=== PATIENT | male | born 1965 | race Caucasian/White ===

== ENCOUNTER 2018-03-06 15:05 | Emergency (ER) | payer MEDICARE, OTHER ==
[~2018-03-06] VITALS: Ht 182.9 cm; Wt 86.6 kg
[2018-03-06 16:11] LABS: Basophils # (auto) 0 uL; Eosinophils # (auto) 0 uL; Hematocrit 42.5 % (41.0-53.0); Mean Corpuscular Hemoglobin 25.2 pg (28.0-32.0); Monocytes # (auto) 0.3 uL
[2018-03-06 16:13] LABS: Basophils % (auto) 0.5 % (0.0-2.0); Eosinophils % (auto) 0.3 % (0.0-7.0); Hemoglobin 13.8 g/dL (13.5-17.5); Lymphocytes # (auto) 0.9 uL; Lymphocytes % (auto) 11.1 % (10.0-50.0); Mean Corpuscular Hgb Conc. 32.4 g/dL (32.0-36.0); Mean Corpuscular Volume 77.6 fL (80.0-100.0); Neutrophils # (auto) 6.6 uL; Neutrophils % (auto) 84.1 % (37.0-80.0); Nucleated Red Blood Cells % 0.1 %; Platelet Count (auto) 121 10^3/uL (140-450); Red Blood Cells 5.47 10^6/uL (4.5-5.90); White Blood Cell 7.8 10^3/uL (4.4-10.8)
[2018-03-06 16:38] LABS: Albumin 4.6 g/dL (3.4-5.0); BUN/Creatinine Ratio 23.8; Bilirubin, Total 0.8 mg/dL (0.2-1.0); Calcium 8.6 mg/dL (8.5-10.1); Potassium 4.2 mmol/L (3.5-5.1); Total Protein 7.3 g/dL (6.4-8.2)
[2018-03-06 18:36] VITALS: BP 134/97
== END 2018-03-06 18:38 | disposition home or self-care (01) ==
LOC: ER 15:07
DX: R06.02 Shortness of breath (principal); I10 Essential (primary) hypertension; J44.9 Chronic obstructive pulmonary disease, unspecified; F17.210 Nicotine dependence, cigarettes, uncomplicated; I25.2 Old myocardial infarction; Z86.73 Personal history of transient ischemic attack (TIA), and cerebral infarction without residual deficits
CPT/HCPCS: 36415; 71046; 80053; 84484; 85025; 94761

== ENCOUNTER 2023-07-01 22:49 | Inpatient (IN) | payer MEDICARE, MEDICAID ==
[~2023-07-01] VITALS: Ht 175.3 cm; Wt 105.2 kg
[2023-07-01 23:38] LABS: Basophils # (auto) 0.1 10 ^3/uL (0-0.2); Basophils % (auto) 1.2 % (0.0-2.0); Eosinophils # (auto) 0.3 10 ^3/uL (0-0.8); Hemoglobin 13.2 g/dL (13.5-17.5); Monocytes # (auto) 0.5 10 ^3/uL (0-1.3); Nucleated Red Blood Cells % 0.2 %; Red Cell Distribution Width 19.8 % (11.8-14.3)
[2023-07-01 23:40] LABS: Eosinophils % (auto) 4.3 % (0.0-7.0); Hematocrit 42.5 % (41.0-53.0); Lymphocytes # (auto) 1.7 10 ^3/uL (0.4-5.4); Lymphocytes % (auto) 25.7 % (10.0-50.0); Mean Corpuscular Hemoglobin 21.1 pg (28.0-32.0); Monocytes % (auto) 8.3 % (0.0-12.0); Neutrophils # (auto) 3.9 10 ^3/uL (1.6-8.6); Neutrophils % (auto) 60.5 % (37.0-80.0); Red Blood Cells 6.25 10^6/uL (4.5-5.90); White Blood Cell 6.5 10^3/uL (4.4-10.8)
[2023-07-01 23:49] LABS: Alanine Aminotransferase 31 U/L (7-40); Albumin 4.5 g/dL (3.2-4.8); Alkaline Phosphatase 120 U/L (46-116); Anion Gap 4.1 (5-15); Aspartate Aminotransferase 23 U/L (13-40); BUN/Creatinine Ratio 9.8 (10.0-20.0); Bilirubin, Total 0.3 mg/dL (0.2-1.0); Blood Urea Nitrogen 8 mg/dL (9-23); Carbon Dioxide 30.9 mmol/L (20-30); Chloride 104 mmol/L (98-107); Glucose 119 mg/dL (74-106); Sodium 139 mmol/L (136-145); Total Protein 7.2 g/dL (5.7-8.2)
[2023-07-02] VITALS (19 sets, daily range): BP systolic 119–165; BP diastolic 70–100; PULSE 63–96; RESP 12–22; TEMP 97.6–98.2; O2SAT 90–99
[2023-07-02] MEDS ORDERED: PANTOPRAZOLE 40 MG/10 ML VIAL INJ IV ONE
[2023-07-02] MEDS ORDERED: MORPHINE SULFATE 4 MG/ML SYR/VIAL IV ONE
[2023-07-02] MEDS ORDERED: ONDANSETRON HCL 4 MG/2 ML VIAL IV ONE
[2023-07-02] MEDS ORDERED: ACETAMINOPHEN 325 MG TAB PO ONE
[2023-07-02] MEDS ORDERED: ASPirin 81 mg TAB PO ONE
[2023-07-02] MEDS ORDERED: SODIUM CHLORIDE 0.9% 1,000 ML IV ONE
[2023-07-02] MEDS ORDERED: NITROGLYCERIN 0.4MG/HR TOPICAL PATCH TD ONE
[2023-07-02 00:02] LABS: INR 0.95 (0.9-1.15); Partial Thromboplastin Time 26.2 SEC (24.5-34.5)
[2023-07-02] MEDS ORDERED: ENOXAPARIN SOD 100 MG/1 ML SYRINGE SC ONE (02:15)
[2023-07-02] MEDS ORDERED: ONDANSETRON HCL 4 MG/2 ML VIAL IV PRN (04:15)
[2023-07-02] MEDS ORDERED: NITROGLYCERIN 0.4 MG SL TAB SL PRN (04:15)
[2023-07-02] MEDS ORDERED: MORPHINE SULFATE INJ 2 MG/ml SYRG IV PRN (04:15)
[2023-07-02] MEDS ORDERED: HYDROcodone-ACET 5/325MG TAB PO PRN (04:15)
[2023-07-02] MEDS ORDERED: ACETAMINOPHEN 325 MG TAB PO PRN (04:15)
[2023-07-02] MEDS ORDERED: DOCUSATE SOD 100 MG CAP PO PRN (04:15)
[2023-07-02 04:35] LABS: Urine Bacteria NONE SEEN /hpf (None Seen); Urine Blood Negative /uL (Negative); Urine Clarity Clear (Clear); Urine Color Yellow (Yellow); Urine Mucus FEW (None Seen); Urine Protein, UAD Negative (Negative); Urine Specific Gravity 1.022 (1.001-1.035); Urine Urobilinogen Normal (Negative); Urine WBC 2 /hpf (0 - 3); Urine pH 5.5 (5.0-8.0)
[2023-07-02 05:01] LABS: Barbiturate Scree,Urine Neg (NEGATIVE); Benzodiazephine Screen, Urine Neg (NEGATIVE); Cannabinoid Screen, Urine Neg (NEGATIVE); Phencyclidine Screen, Urine Neg (NEGATIVE)
[2023-07-02 05:04] LABS: Amphetamine Screen, Urine Pos (NEGATIVE); Cocaine Screen, Urine Neg (NEGATIVE); Opiate Scree,Urine Pos (NEGATIVE)
[2023-07-02] MEDS: ALBUTEROL SULF 2.5 MG/0.5ML(0.5%) NEB SOLN NEB PRN ×2 (05:57→09:48)
[2023-07-02] MEDS: SODIUM CHLOR 0.9% PF (SALINE LOCK) 10ML VIAL/SYR IV SCH ×3 (06:17→22:28)
[2023-07-02 06:26] LABS: Basophils # (auto) 0 10 ^3/uL (0-0.2); Eosinophils # (auto) 0.3 10 ^3/uL (0-0.8); Mean Corpuscular Volume 67.6 fL (80.0-100.0); Monocytes % (auto) 10.2 % (0.0-12.0)
[2023-07-02 06:28] LABS: Basophils % (auto) 0.8 % (0.0-2.0); Eosinophils % (auto) 4.8 % (0.0-7.0); Hematocrit 37.5 % (41.0-53.0); Hemoglobin 11.3 g/dL (13.5-17.5); Lymphocytes % (auto) 35.7 % (10.0-50.0); Mean Corpuscular Hemoglobin 20.4 pg (28.0-32.0); Mean Corpuscular Hgb Conc. 30.1 g/dL (32.0-36.0); Monocytes # (auto) 0.6 10 ^3/uL (0-1.3); Neutrophils # (auto) 2.7 10 ^3/uL (1.6-8.6); Neutrophils % (auto) 48.5 % (37.0-80.0); Nucleated Red Blood Cells % 0.1 %; Red Blood Cells 5.55 10^6/uL (4.5-5.90); Red Cell Distribution Width 19.3 % (11.8-14.3); White Blood Cell 5.6 10^3/uL (4.4-10.8)
[2023-07-02 07:36] LABS: Alanine Aminotransferase 26 U/L (7-40); Albumin 3.7 g/dL (3.2-4.8); Alkaline Phosphatase 84 U/L (46-116); Anion Gap 3.7 (5-15); Aspartate Aminotransferase 18 U/L (13-40); BUN/Creatinine Ratio 14.9 (10.0-20.0); Blood Urea Nitrogen 11 mg/dL (9-23); Calcium 8.2 mg/dL (8.5-10.1); Carbon Dioxide 32.3 mmol/L (20-30); Chloride 105 mmol/L (98-107); Glucose 109 mg/dL (74-106); Potassium 4.2 mmol/L (3.5-5.1); Sodium 141 mmol/L (136-145)
[2023-07-02 07:37] LABS: Total Protein 6.1 g/dL (5.7-8.2)
[2023-07-02 07:40] LABS: Bilirubin, Total 0.3 mg/dL (0.2-1.0)
[2023-07-02] MEDS: PANTOPRAZOLE 40 MG/10 ML VIAL INJ IV SCH (09:59)
[2023-07-02] MEDS ORDERED: ASPirin 81 mg TAB PO SCH (10:00)
[2023-07-02] MEDS: ALBUTEROL SULF 2.5 MG/0.5ML(0.5%) NEB SOLN NEB SCH ×2 (11:59→20:32)
[2023-07-02 13:09] LABS: Triglycerides 124 mg/dL (< 150)
[2023-07-02 13:10] LABS: LDL Cholesterol 76 mg/dL (< 100)
[2023-07-02 13:11] LABS: Cholesterol 130 mg/dL (< 200); HDL Cholesterol 47 mg/dL (40-59)
[2023-07-02] MEDS ORDERED: hydrALAZINE HCL 25 MG TAB PO SCH (14:00)
[2023-07-02] MEDS ORDERED: BISA10SU60 PR (16:10)
[2023-07-02] MEDS ORDERED: ASCO500T11 PO (16:10)
[2023-07-02] MEDS ORDERED: AML5T PO (16:10)
[2023-07-02] MEDS ORDERED: MAGNSUS48 PO (16:10)
[2023-07-02] MEDS ORDERED: VITA100T3 PO (16:10)
[2023-07-02] MEDS ORDERED: LACTCAP20 PO (16:10)
[2023-07-02] MEDS ORDERED: LISI-285 PO (16:10)
[2023-07-02] MEDS ORDERED: QUET50TA PO (16:10)
[2023-07-02] MEDS ORDERED: HYDR-4296 PO (16:10)
[2023-07-02] MEDS ORDERED: HYDR-4902 PO (16:10)
[2023-07-02] MEDS ORDERED: DOCU-94 PO (16:10)
[2023-07-02] MEDS ORDERED: CRAN450T PO (16:10)
[2023-07-02] MEDS ORDERED: CARV6.2551 PO (16:16)
[2023-07-02] MEDS ORDERED: BUDE0.5S IN (16:16)
[2023-07-02] MEDS ORDERED: ACET-1881 PO (16:16)
[2023-07-02] MEDS ORDERED: VITA100C2 PO (16:16)
[2023-07-02] MEDS ORDERED: APIX5TAB PO (16:16)
[2023-07-02] MEDS ORDERED: ASPI1TAB19 PO (16:16)
[2023-07-02] MEDS ORDERED: ZINC220C8 PO (16:16)
[2023-07-02] MEDS ORDERED: ZIPR20CA27 PO (16:16)
[2023-07-02] MEDS ORDERED: ATOR40TA52 PO (16:16)
[2023-07-02] MEDS ORDERED: CLOPIDOGREL 300 MG TAB PO ONE (16:30)
[2023-07-02] MEDS: MORPHINE SULFATE INJ 2 MG/ml SYRG IV PRN ×2 (16:48→21:43)
[2023-07-02] MEDS: NICOTINE 21MG/24 HR TOPICAL PATCH TD SCH (18:02)
[2023-07-02] MEDS: APIXABAN 5 MG TAB PO SCH (21:32)
[2023-07-02] MEDS: hydrALAZINE HCL 25 MG TAB PO SCH (21:39)
[2023-07-02] MEDS ORDERED: ATORVASTATIN 20 MG TAB PO SCH ×2 (22:00)
[2023-07-02] MEDS ORDERED: QUEtiapine FUMARATE 100 MG TAB PO SCH (22:00)
[2023-07-02] MEDS ORDERED: CARVEDILOL 3.125 MG TAB PO SCH (22:00)
[2023-07-02] MEDS: CARVEDILOL 3.125 MG TAB PO SCH (22:00)
[2023-07-03] VITALS (11 sets, daily range): BP systolic 129–149; BP diastolic 80–89; PULSE 45–101; RESP 14–18; TEMP 97.6–98.2; O2SAT 90–99
[2023-07-03] MEDS: ALBUTEROL SULF 2.5 MG/0.5ML(0.5%) NEB SOLN NEB SCH ×3 (01:03→11:46)
[2023-07-03] MEDS: SODIUM CHLOR 0.9% PF (SALINE LOCK) 10ML VIAL/SYR IV SCH ×2 (05:33→14:00)
[2023-07-03] MEDS: hydrALAZINE HCL 25 MG TAB PO SCH ×2 (05:33→16:39)
[2023-07-03 07:08] LABS: Alanine Aminotransferase 23 U/L (7-40); Albumin 3.9 g/dL (3.2-4.8); Alkaline Phosphatase 84 U/L (46-116); Anion Gap 3.6 (5-15); Aspartate Aminotransferase 19 U/L (13-40); BUN/Creatinine Ratio 14.1 (10.0-20.0); Blood Urea Nitrogen 10 mg/dL (9-23); Calcium 8.6 mg/dL (8.7-10.4); Carbon Dioxide 32.4 mmol/L (20-30); Chloride 104 mmol/L (98-107); Glucose 94 mg/dL (74-106); Potassium 3.6 mmol/L (3.5-5.1); Sodium 140 mmol/L (136-145)
[2023-07-03 07:09] LABS: Total Protein 6.1 g/dL (5.7-8.2)
[2023-07-03 07:28] LABS: Bilirubin, Total 0.3 mg/dL (0.2-1.0)
[2023-07-03 07:46] LABS: Basophils # (auto) 0 10 ^3/uL (0-0.2); Basophils % (auto) 0.5 % (0.0-2.0); Eosinophils # (auto) 0.2 10 ^3/uL (0-0.8); Eosinophils % (auto) 3.4 % (0.0-7.0); Hemoglobin 11.2 g/dL (13.5-17.5); Lymphocytes # (auto) 1.1 10 ^3/uL (0.4-5.4); Lymphocytes % (auto) 20.7 % (10.0-50.0); Mean Corpuscular Hemoglobin 20.1 pg (28.0-32.0); Mean Corpuscular Hgb Conc. 30.3 g/dL (32.0-36.0); Mean Corpuscular Volume 66.5 fL (80.0-100.0); Monocytes # (auto) 0.5 10 ^3/uL (0-1.3); Monocytes % (auto) 10.8 % (0.0-12.0); Neutrophils # (auto) 3.3 10 ^3/uL (1.6-8.6); Neutrophils % (auto) 64.6 % (37.0-80.0); Nucleated Red Blood Cells % 0.1 %; Red Blood Cells 5.56 10^6/uL (4.5-5.90); Red Cell Distribution Width 19.7 % (11.8-14.3); White Blood Cell 5.1 10^3/uL (4.4-10.8)
[2023-07-03] MEDS ORDERED: REGADENOSON 0.4 MG/5 ML SYRG IV ONE (08:00)
[2023-07-03] MEDS: PANTOPRAZOLE 40 MG/10 ML VIAL INJ IV SCH (09:21)
[2023-07-03] MEDS: NICOTINE 21MG/24 HR TOPICAL PATCH TD SCH (09:22)
[2023-07-03] MEDS: APIXABAN 5 MG TAB PO SCH (09:40)
[2023-07-03] MEDS: CARVEDILOL 3.125 MG TAB PO SCH (09:40)
[2023-07-03] MEDS ORDERED: PANTOPRAZOLE 40 MG TAB PO SCH (09:45)
[2023-07-03] MEDS ORDERED: CLOPIDOGREL BISULFATE 75 MG TAB PO SCH (10:00)
[2023-07-03] MEDS ORDERED: LISINOPRIL 10 MG TAB PO SCH (10:00)
[2023-07-03] MEDS ORDERED: PANTOPRAZOLE 40 MG TAB PO ONE (10:00)
[2023-07-03] MEDS ORDERED: ASPirin-EC 81 mg tab PO SCH (10:00)
[2023-07-03] MEDS ORDERED: NICOTINE 21MG/24 HR TOPICAL PATCH TD SCH (10:00)
[2023-07-03] MEDS ORDERED: amLODIPine BESYLATE 5 MG TAB PO SCH ×2 (10:00)
[2023-07-03] MEDS ORDERED: ISOSORBIDE MONONITRATE ER 60 MG TAB PO SCH (10:00)
[2023-07-03] MEDS ORDERED: PATIENTS OWN MEDICATION (Lisinopril & Hydrochlorothiazi (Lisinopril/Hydrochlorothi) 1 TAB) PO SCH (10:00)
[2023-07-03 10:15] LABS: Platelet Estimate Adequate
[2023-07-03 10:17] LABS: Hypochromia Marked
[2023-07-03 12:48] LABS: COVID19 ANTIGEN SOFIA FIA NEGATIVE (NEGATIVE)
[2023-07-03] MEDS: MORPHINE SULFATE INJ 2 MG/ml SYRG IV PRN (15:04)
[2023-07-04] MEDS ORDERED: PANTOPRAZOLE 40 MG TAB PO SCH (10:00)
== END 2023-07-03 18:00 | DRG 313 ==
LOC: ER 22:49 → EDBD 22:49 → TELE 07-02 04:14 → TELE-WESTW 07-02 10:45
PROVIDERS: ADMIT Nurse Practitioner Family; ATTEND Family Medicine
DX: R07.89 Other chest pain (principal); J44.1 Chronic obstructive pulmonary disease with (acute) exacerbation; I10 Essential (primary) hypertension; F15.10 Other stimulant abuse, uncomplicated; E66.9 Obesity, unspecified; F17.210 Nicotine dependence, cigarettes, uncomplicated; F20.9 Schizophrenia, unspecified; Z20.822 Contact with and (suspected) exposure to COVID-19; Z79.01 Long term (current) use of anticoagulants; I25.2 Old myocardial infarction; Z68.34 Body mass index [BMI] 34.0-34.9, adult; Z79.51 Long term (current) use of inhaled steroids; Z79.82 Long term (current) use of aspirin; Z86.718 Personal history of other venous thrombosis and embolism; Z86.73 Personal history of transient ischemic attack (TIA), and cerebral infarction without residual deficits; Z95.810 Presence of automatic (implantable) cardiac defibrillator; Z71.6 Tobacco abuse counseling
CPT/HCPCS: 36415; 71045; 80053; 80061; 80307; 80320; 81001; 83036; 83880; 84443; 84484; 85025; 85610; 85730; 87426; 93005; 93306; 94640; C9113; G0378; J2405

== ENCOUNTER 2025-02-21 13:04 | Inpatient (IN) | payer MEDICARE, MEDICAID ==
[~2025-02-21] VITALS: Ht 180.3 cm; Wt 92.3 kg
[~2025-02-21 13:04] MED LIST: ACET-1881 PO; AML5T PO; APIX5TAB PO; ASCO500T11 PO; ASPI1TAB19 PO; ATOR40TA52 PO; BISA10SU60 PR; BUDE0.5S IN; CARV6.2551 PO; CRAN450T PO; DOCU-94 PO; HYDR-4902 PO; HYDR25TA88 PO; LACTCAP20 PO; LISI-285 PO; MAGNSUS48 PO; QUET50TA PO; VITA100C2 PO; ZINC220C8 PO; ZIPR20CA27 PO
--- NOTE | 2025-02-21 13:39 | ED.PDOC ---
SOB-HPI HPI Comments 59-year-old male brought in by niece presents with a chief complaint of SOB x 2 weeks with associated confusion x onset today. Patient is very lethargic, arousable to verbal stimuli, but having difficulty maintaining coherence. Patients niece states that this all began few days ago. Patient is homeless and has been having worsening SOB for the past 2 weeks according to niece. . Patient is sating at 90% on 4L via [place]. Patient does not use oxygen at home. Patient has not been taking any medicine for a long time according to the niece. Patient was seen at [facility] x 2 days ago for the same C/C and was discharged with Prednisone. PMHx: TIA, COPD, HTN, VA PSHx: Hernia Repair HPI: Poor Historian. REVIEW OF SYSTEMS: CONSTITUTIONAL: Denies acute: fever, diaphoresis, chills, HEAD: Denies acute: headache, photophobia Eyes: Denies acute: Double vision, vision loss, eye pain, eye discharge. EARS: Denies acute: tinnitus, hearing loss, ear discharge, ear pain, THROAT: Denies acute: sore throat, swelling, difficulty swallowing , pain with swallowing, change in voice. NECK: Denies acute: neck pain, neck swelling, stiff neck. HEART: Denies acute : chest pain, palpitations, LUNGS: Denies acute: wheezing, hemoptysis ABDOMEN: Denies acute: abdominal pain, Nausea, Vomiting, diarrhea, melena , hematemesis, hematochezia SKIN: Denies acute: rash, redness, lesions, itchiness. EXTREMITIES: Denies acute: calf pain, numbness, tingling, weakness, denies pain in extremity. Denies acute: Low back pain. Neuro: Denies acute: focal neurological deficit, motor or sensory focal neurological deficit, tremors, seizure like activity, loss of bowel or bladder function, cauda equina like symptoms. : Denies acute: dysuria, hematuria, flank pain, increase in urinary frequency. PSYCH: Denies acute: hallucination, suicidal ideation, homicidal ideation. PHYSICAL EXAM: General: -----[id number]---acute distress, awake and alert. Head: normocephalic, atraumatic. Neck: supple, trachea is midline, no swelling. Throat: Normal phonation. Eyes:, no erythema, no purulent discharge, no proptosis, no icterus. Heart: regular rate, regular rhythm, no significant murmur appreciated. Lungs: no apparent respiratory distress, Able to speak in full sentences. No wheezing, no rhonchi, no crackles. No stridors Clear to auscultation bilaterally. Abdomen: non tender to palpation, non distended, soft, no guarding, no rebound, + bowel sounds. Neuro: Awake, Alert, oriented to name, self, situation, follows commands GCS=15. Speech is normal. Skin: no petechia, no purpura, no cyanosis, non-pale, not jaundice. Lower extremities: --trace bilateral - Pitting edema no deformity, no focal swelling, no calf TTP. Makes eye contact. moves all four extremities. Face: no apparent facial droop. No nystagmus. No nuchal rigidity, Kernig's sign, Brudzinski's sign, no meningeal signs. ED COURSE: Time Seen by MD: 13:28 Primary Care Provider: DR RODRIGUEZ Reviewed notes: Medications, Allergies Information Source: Patient Mode of Arrival: Ambulatory Severity: Moderate Past Medical History PAST MEDICAL HISTORY: COPD, HTN, VA, TIA Surgical History: Hernia Repair Family History Family History: Reviewed,noncontributory to illness Social History Smoker: Cigarettes Alcohol: Denies ETOH Use Drugs: Marijuana Lives In: Homeless Was a procedure done? Was a procedure done?: No Differential Dx Differential Diagnosis: Other (DDx include ACS, unstable angina, anxiety, PE, pneumothroax, neoplasm, cardiac ischemia, COPD, asthma, CHF, pleural effusion, tobacco abuse, pneumonia, hypoxia, hypercapnia, anemia., infection/sepsis., pulmonary edema. Asthma, Cardiac tamponade, infection.) X-Ray, Labs, Meds, VS Vital Signs Date Time Temp Pulse Resp B/P (MAP) Pulse Ox O2 Delivery O2 Flow Rate FiO2 02/21/25 21:35 97.6 92 16 121/77 93 4.0 36 97.6 02/21/25 21:00 106 15 117/77 (90) 91 02/21/25 20:26 18 93 Nasal Cannula* 4 36 5/2/25 19:30 97.6 92 16 121/77 (92) 91 97.6 02/21/25 19:30 92 12 91 Nasal Cannula* 4 36 02/21/25 18:24 79 13 143/89 (107) 95 02/21/25 16:15 70 12 107/71 (83) 95 02/21/25 14:52 78 16 94 Nasal Cannula* 4 36 02/21/25 14:44 127/78 02/21/25 14:17 20 94 Nasal Cannula* 4 36 02/21/25 14:15 97.9 77 16 121/79 (93) 94 97.9 02/21/25 13:42 97.9 74 16 123/72 (89) 86 97.9 Lab Test 02/21/25 16:30 02/21/25 15:13 02/21/25 14:42 02/21/25 14:28 Range/Units Troponin I High Sensitivity 8 10 </=54 ng/L Urine Color Colorless Yellow Urine Clarity Clear Clear Urine pH 7.5 5.0-9.0 Urine Specific [place] 1.006 1.001-1.035 Urine Protein Negative Negative Urine Ketones Negative Negative Urine Blood Negative Negative /uL Urine Nitrite Negative Negative Urine Bilirubin Negative Negative Urine Urobilinogen Normal Negative mg/dL Urine Leukocyte Esterase Negative Negative /uL Urine RBC 1 0 - 3 /hpf Urine Microscopic WBC < 1 0-3 /HPF Urine Squamous Epithelial Cells None seen <5 /hpf Urine Bacteria None seen None Seen /hpf Urine Glucose 4+ H Normal mg/dL Urine Opiates Screen Neg NEGATIVE Urine Fentanyl Screen Neg NEGATIVE Urine Barbiturates Screen Neg NEGATIVE Urine Phencyclidine Screen Neg NEGATIVE Urine Amphetamines Screen Neg NEGATIVE Urine Benzodiazepines Screen Neg NEGATIVE Urine Cocaine Screen Neg NEGATIVE Urine Cannabinoids Screen Neg NEGATIVE Blood Gas Specimen Type Arterial Blood Gas Sample Site Right radial Blood Gas Patient Temperature 37.0 Arterial Blood Date Drawn [id number] Arterial Blood pH 7.441 7.350-7.450 Arterial Blood Partial Pressure CO2 47.7 35.0-48.0 mmHg Arterial Blood Partial Pressure O2 68.9 L 83.0-108.0 mmHg Arterial Blood HCO3 31.7 H 21.0-28.0 mmol/L Arterial Blood Oxygen Saturation 94.8 94.0-98.0 % Arterial Blood Base Excess 6.4 H -2.0-3.0 mmol/L Arterial Blood Oxyhemoglobin 93.1 L 94.0-98.0 % Arterial Blood Carboxyhemoglobin 1.5 0.5-1.5 % Arterial Blood Methemoglobin 0.3 0.0-1.5 % [place] Test Yes Blood Gas Total Hemoglobin 15.10 13.5-17.5 g/dL Blood Gas Modality Nasal cannula FiO2 % 36.0 Test 02/21/25 13:48 02/21/25 13:30 Range/Units White Blood Count 13.7 H 4.4-10.8 10^3/uL Red Blood Count 6.20 H 4.5-5.90 10^6/uL Hemoglobin 15.4 13.5-17.5 g/dL Hematocrit 46.5 41.0-53.0 % Mean Corpuscular Volume 75.1 L 80.0-100.0 fL Mean Corpuscular Hemoglobin 24.8 L 28.0-32.0 pg Mean Corpuscular Hemoglobin Concent 33.1 32.0-36.0 g/dL Red Cell Distribution Width 15.6 H 11.8-14.3 % Platelet Count 188 140-450 10^3/uL Mean Platelet Volume 8.3 6.9-10.8 fL Neutrophils (%) (Auto) 85.9 H 37.0-80.0 % Lymphocytes (%) (Auto) 7.4 L 10.0-50.0 % Monocytes (%) (Auto) 5.5 0.0-12.0 % Eosinophils (%) (Auto) 0.4 0.0-7.0 % Basophils (%) (Auto) 0.8 0.0-2.0 % Neutrophils # (Auto) 11.8 H 1.6-8.6 10 ^3/uL Lymphocytes # (Auto) 1.0 0.4-5.4 10 ^3/uL Monocytes # (Auto) 0.8 0-1.3 10 ^3/uL Eosinophils # (Auto) 0.1 0-0.8 10 ^3/uL Basophils # (Auto) 0.1 0-0.2 10 ^3/uL Nucleated Red Blood Cells 0.1 % Prothrombin Time 10.8 9.3-11.8 sec Prothrombin Time INR 1.02 0.9-1.15 Activated Partial Thromboplast Time 28.1 24.5-34.5 SEC Sodium Level 144 136-145 mmol/L Potassium Level 3.7 3.5-5.1 mmol/L Chloride Level 104 98-107 mmol/L Carbon Dioxide Level 33 H 20-31 mmol/L Anion Gap 7 5-15 Blood Urea Nitrogen 21 9-23 mg/dL Creatinine 0.92 0.700-1.30 mg/dL Glomerular Filtration Rate Calc 95 >90 mL/min BUN/Creatinine Ratio 22.8 H 10.0-20.0 Serum Glucose 101 74-106 mg/dL Lactic Acid Level 1.2 0.4-2.0 mmol/L Calcium Level 9.3 8.7-10.4 mg/dL Magnesium Level 1.9 1.6-2.6 mg/dL Total Bilirubin 0.3 0.2-1.0 mg/dL Aspartate Amino Transferase (AST) 18 13-40 U/L Alanine Aminotransferase (ALT) 19 7-40 U/L Alkaline Phosphatase 105 46-116 U/L Troponin I High Sensitivity 11 </=54 ng/L B-Type Natriuretic Peptide 43.65 0-100 pg/mL Total Protein 6.4 5.7-8.2 g/dL Albumin 4.3 3.2-4.8 g/dL Plasma/Serum Blood Alcohol < 3.0 <10 mg/dL POC Glucose 116 H 70-106 mg/dl Current Medications Medications (Trade) Dose Ordered Sig/Tiffanie Route Start Time Stop Time Status Last Admin Albuterol (Ventolin Medneb) 2.5 mg ONCE ONCE NEB 02/21/25 14:00 02/21/25 14:01 DC 02/21/25 14:17 Ipratropium [place] (Atrovent Medneb) 1 mg ONCE ONCE NEB 02/21/25 14:00 02/21/25 14:01 DC 02/21/25 14:17 Methylprednisolone Sodium Succinate (Solu Medrol) 125 mg ONCE ONCE IV 02/21/25 14:00 02/21/25 14:01 DC 02/21/25 14:42 Ceftriaxone Sodium 50 ml @ 100 mls/hr ONCE ONCE IV 02/21/25 14:15 02/21/25 14:44 DC 02/21/25 14:43 Furosemide (Lasix Injection) 20 mg ONCE ONCE IV 02/21/25 14:15 02/21/25 14:16 DC 02/21/25 14:44 Albuterol (Ventolin Medneb) 2.5 mg ONCE ONCE NEB 02/21/25 20:15 02/21/25 20:16 DC 02/21/25 20:24 Ipratropium [place] (Atrovent Medneb) 1 mg ONCE ONCE NEB 02/21/25 20:15 02/21/25 20:16 DC 02/21/25 20:24 [place] [id number] Ph: [phone] DIAGNOSTIC IMAGING Diagnostic Imaging Report : [id number] Signed PATIENT: VINCENZO JULIAN ACCT: [id number] UNIT: [id number] : 1965 LOC: ER ROOM / BED: / AGE / SEX: 59 / M ADM STATUS: REG ER SERVICE [id number] ORDERING PHYSICIAN: YARED AGUILAR DO PROCEDURE(s): HWOCT - HEAD WITHOUT CONTRAST REASON: altered ORDER NUMBER(s): [id number], ACCESSION NUMBER(s): [id number] EXAM: CT HEAD WITHOUT CONTRAST HISTORY: altered COMPARISON: None TECHNIQUE: Axial images of the head were obtained and reformatted in coronal and sagittal planes. All CT scans at this medical facility are performed using dose modulation techniques as appropriate to a performed exam including the following: Automated exposure control was utilized; adjustment of the MA and/or KV according to patient size; and use of iterative reconstruction technique. CT Dose: CTDI volume is 58.46 mGy. Dose-length product is 1035.18 mGy*cm FINDINGS: There is no evidence of acute intracranial hemorrhage, mass, mass effect midline shift. There is no hydrocephalus or extra-axial fluid collection. Solorzano-white matter differentiation is maintained. There is near complete opacification of the ethmoid and maxillary sinuses. Mastoid air cells are clear. The calvarium is intact. IMPRESSION: 1. No acute intracranial process. HS:Y ATED BY: RAMIRO ZHENG MD DICTATED DATE/TIME: 02/21/251426 SIGNED BY: RAMIRO ZHENG MD SIGNED DATE/TIME: 02/21/251426 CC: [place] [id number] Ph: [phone] DIAGNOSTIC IMAGING Diagnostic Imaging Report : [id number] Signed PATIENT: VINCENZO JULIAN ACCT: [id number] UNIT: [id number] : 1965 LOC: ER ROOM / BED: / AGE / SEX: 59 / M ADM STATUS: REG ER SERVICE 1329 ORDERING PHYSICIAN: YARED AGUILAR DO PROCEDURE(s): CXRP - CHEST PORTABLE REASON: weak/sob/confusion ORDER NUMBER(s): [id number], ACCESSION NUMBER(s): [id number] CHEST RADIOGRAPH Indication: weak/sob/confusion Technique: Single frontal view of the chest was obtained COMPARISON: XY CHEST PORTABLE on DOS: 07/01/23 FINDINGS: Lines and Tubes: Left chest wall AICD. Lungs: Mild congestion Pleura: No effusion. No pneumothorax. Cardiomediastinal contours: Unremarkable Bones: Unremarkable IMPRESSION: Mild congestion. ATED BY: YOVANI CHADWICK MD DICTATED DATE/TIME: 02/21/251405 SIGNED BY: YOVANI CHADWICK MD SIGNED DATE/TIME: 02/21/251405 CC: Time of 1ST Reevaluation: 13:58 Reevaluation 1ST: Unchanged Patient Education/Counseling: Diagnosis, Treatment Family Education/Counseling: Diagnosis, Treatment Comments Patient presented with the above HPI.--dyspnea, altered mental status----workup was initiated. patient was found with the above mentioned diagnosis. the following medications were ordered: please refer to order lists of meds and tests obtained by myself Dr. Aguilar. Patient ED course and VS have been stabilized. Patient has been reassessed in the ED and remained in a stable condition. Pertinent incidental findings were discussed with the patient and/or family. Patient/family voices understanding and is agreeable with plan. Patient has been observed in the ED adequate length of time to insure improvement/stability. Escalation of care considered: Consideration of escalation to observation or admission Patient was ADMITTED to the medicine team for further evaluation and treatment of their presentation. All the reports of any imaging studies that were ordered by myself were reviewed by myself. Departure 1 Departure Time of Disposition: 14:20 Impression: Primary Impression: Hypoxemia Additional Impressions: Dyspnea Altered level of consciousness Disposition: ADMITTED INPATIENT Admit to: Tele Condition: Guarded Discharged With: Self Critical Care Note Critical Care Time?: Yes (45 min-critical care time only) I personally scribed for YARED AGUILAR DO ([email or web address]) on 02/21/25 at 13:39. Electronically submitted by Nigel Tay ([email or web address]). I personally scribed for YARED AGUILAR DO ([email or web address]) on 02/21/25 at 14:27. Electronically submitted by Nigel Tay ([email or web address]). YARED AGUILAR DO February 21, 2025 13:39
[2025-02-21 14:05] LABS: Basophils # (auto) 0.1 10 ^3/uL (0-0.2); Basophils % (auto) 0.8 % (0.0-2.0); Eosinophils # (auto) 0.1 10 ^3/uL (0-0.8); Eosinophils % (auto) 0.4 % (0.0-7.0); Hematocrit 46.5 % (41.0-53.0); Hemoglobin 15.4 g/dL (13.5-17.5); Lymphocytes % (auto) 7.4 % (10.0-50.0); Mean Corpuscular Hemoglobin 24.8 pg (28.0-32.0); Mean Corpuscular Hgb Conc. 33.1 g/dL (32.0-36.0); Mean Corpuscular Volume 75.1 fL (80.0-100.0); Monocytes # (auto) 0.8 10 ^3/uL (0-1.3); Monocytes % (auto) 5.5 % (0.0-12.0); Neutrophils # (auto) 11.8 10 ^3/uL (1.6-8.6); Neutrophils % (auto) 85.9 % (37.0-80.0); Nucleated Red Blood Cells % 0.1 %; Platelet Count (auto) 188 10^3/uL (140-450); Red Cell Distribution Width 15.6 % (11.8-14.3); White Blood Cell 13.7 10^3/uL (4.4-10.8)
--- NOTE | 2025-02-21 14:08 | DVH ---
CHEST RADIOGRAPH Indication: weak/sob/confusion Technique: Single frontal view of the chest was obtained COMPARISON: XY CHEST PORTABLE on DOS: 07/01/23 FINDINGS: Lines and Tubes: Left chest wall AICD. Lungs: Mild congestion Pleura: No effusion. No pneumothorax. Cardiomediastinal contours: Unremarkable Bones: Unremarkable IMPRESSION: Mild congestion.
[2025-02-21] MEDS: ALBUTEROL SULF 2.5 MG/0.5ML(0.5%) NEB SOLN NEB ONE ×2 (14:17→20:24)
[2025-02-21] MEDS: IPRATROPIUM BROM 0.5 MG/2.5ML INH SOL NEB ONE ×2 (14:17→20:24)
[2025-02-21 14:18] LABS: INR 1.02 (0.9-1.15); Partial Thromboplastin Time 28.1 SEC (24.5-34.5); Prothrombin Time 10.8 sec (9.3-11.8)
[2025-02-21 14:21] LABS: Alanine Aminotransferase 19 U/L (7-40); Albumin 4.3 g/dL (3.2-4.8); Alkaline Phosphatase 105 U/L (46-116); Anion Gap 7 (5-15); Aspartate Aminotransferase 18 U/L (13-40); BUN/Creatinine Ratio 22.8 (10.0-20.0); Bilirubin, Total 0.3 mg/dL (0.2-1.0); Blood Urea Nitrogen 21 mg/dL (9-23); Calcium 9.3 mg/dL (8.7-10.4); Chloride 104 mmol/L (98-107); Glucose 101 mg/dL (74-106); Magnesium 1.9 mg/dL (1.6-2.6); Potassium 3.7 mmol/L (3.5-5.1); Sodium 144 mmol/L (136-145); Total Protein 6.4 g/dL (5.7-8.2)
[2025-02-21 14:23] LABS: Blood Alcohol < 3.0 mg/dL (<10); Carbon Dioxide 33 mmol/L (20-31)
--- NOTE | 2025-02-21 14:29 | DVH ---
EXAM: CT HEAD WITHOUT CONTRAST HISTORY: altered COMPARISON: None TECHNIQUE: Axial images of the head were obtained and reformatted in coronal and sagittal planes. All CT scans at this medical facility are performed using dose modulation techniques as appropriate t o a performed exam including the following: Automated exposure control was utilized; adjustment of th e MA and/or KV according to patient size; and use of iterative reconstruction technique. CT Dose: CTDI volume is 58.46 mGy. Dose-length product is 1035.18 mGy*cm FINDINGS: There is no evidence of acute intracranial hemorrhage, mass, mass effect midline shift. There is no h ydrocephalus or extra-axial fluid collection. Solorzano-white matter differentiation is maintained. There is near complete opacification of the ethmoid and maxillary sinuses. Mastoid air cells are aiden r. The calvarium is intact. IMPRESSION: 1. No acute intracranial process. HS:Y
[2025-02-21] MEDS: methylPREDNISolone SOD SUCC 125 MG/2 ML VL IV ONE (14:42)
[2025-02-21] MEDS: cefTRIAXone 1GM/50ML D5W 50 ML IV ONE (14:43)
[2025-02-21] MEDS: FUROSEMIDE 20 MG/2 ML VIAL IV ONE (14:44)
[2025-02-21 14:52] VITALS: PULSE 78; RESP 16; O2SAT 94
[2025-02-21 14:56] LABS: Base Excess 6.4 mmol/L (-2.0-3.0)
[2025-02-21 15:21] LABS: Urine Bacteria None Seen /hpf (None Seen)
[2025-02-21 15:31] LABS: Urine Blood Negative /uL (Negative); Urine Clarity Clear (Clear); Urine Color Colorless (Yellow); Urine Protein, UAD Negative (Negative); Urine Specific Gravity 1.006 (1.001-1.035); Urine Squamous Epithelial Cell None Seen /hpf (<5); Urine Urobilinogen Normal (Negative); Urine WBC < 1 /HPF (0-3); Urine pH 7.5 (5.0-9.0)
[2025-02-21 15:47] LABS: Amphetamine Screen, Urine Neg (NEGATIVE); Barbiturate Scree,Urine Neg (NEGATIVE); Benzodiazephine Screen, Urine Neg (NEGATIVE); Cannabinoid Screen, Urine Neg (NEGATIVE); Cocaine Screen, Urine Neg (NEGATIVE); Opiate Scree,Urine Neg (NEGATIVE); Phencyclidine Screen, Urine Neg (NEGATIVE)
[2025-02-21 19:30] VITALS: PULSE 92; RESP 12; O2SAT 91
[2025-02-21] MEDS ORDERED: DOCUSATE SOD 100 MG CAP PO PRN (21:30)
[2025-02-21] MEDS ORDERED: ACETAMINOPHEN 325 MG TAB PO PRN (21:30)
[2025-02-21] MEDS ORDERED: ONDANSETRON HCL 4 MG/2 ML VIAL IV PRN (21:30)
[2025-02-21 21:35] VITALS: BP 121/77; PULSE 92; RESP 16; TEMP 97.6; O2SAT 93
--- NOTE | 2025-02-21 22:21 | DVHHP2 ---
History of Present Illness Reason for Visit: Altered level of consciousness History of Present Illness The patient is a 59-year-old male with past medical history of COPD, TIA, VT, and hypertension who presented to [facility] ED for evaluation of altered level of consciousness. As reported by niece, patient is homeless, has been confused, very lethargic, arousable to verbal stimuli, worsening shortness of breaths, having difficulty maintaining coherence few days ago. Patient was seen at [facility] x 2 days ago for the same complaint and was discharged with Prednisone. Patient was seen and evaluated in the ED, laboratory data shows WBC 13.7, platelets 188, sodium 144, potassium 3.7, BUN 21, creatinine 0.92, glucose 101, troponin 8, BNP 43.65. Chest x-ray revealing mild congestion. Patient was given breathing treatment, started on IV antibiotic regimen Rocephin, please see medication orders section in the computer. On my assessment, patient denied chest pain, no headache, no palpitation, no dizziness, currently on oxygen, no nausea, no vomiting, no fever, no chills. Patient was admitted for further evaluation and medical management. Past Medical History TIA, COPD, HTN, VT Past Surgical History Hernia Repair Family History Reviewed, noncontributory to the management of this case. Past Social History The patient lives at home, denies smoking, alcohol or illicit drugs abuse. Review of Systems Constitutional: Yes: Weakness; No: Fever, Chills, Sweats, Malaise, Other Eyes: No: Pain, Vision change, Conjunctivae inflammation, Eyelid inflammation, Other, Redness ENT: No: Ear pain, Ear discharge, Nose pain, Nose discharge, Nose congestion, Mouth pain, Mouth swelling, Throat pain, Throat swelling, Other Respiratory: Shortness of breath, SOB with excertion; No: Cough, Dry, Wheezing, Hemoptysis, Pleuritic Pain, Sputum, Wheezing, Other Cardiovascular: No: Chest Pain, Palpitations, Orthopnea, Paroxysmal Noc. Dyspnea, Edema, Lt Headedness, Other Gastrointestinal: No: Nausea, Vomiting, Abdominal Pain, Diarrhea, Constipation, Melena, Hematochezia, Other Genitourinary: No Dysuria, No Frequency, No Incontinence, No Hematuria, No Retention, No Other Musculoskeletal: No: other, neck pain, shoulder pain, arm pain, back pain, hand pain, leg pain, foot pain Skin: No: Rash, Lesions, Jaundice, Bruising, Other Neurological: Confusion; No: Weakness, Numbness, Incoordination, Change in speech, Seizures, Other Allergies: Coded Allergies: NO KNOWN ALLERGIES (Unverified , 03/06/18) Medications Current Medications Medications Dose Ordered Sig/Tiffanie Route Start Time Stop Time Status Last Admin Dose Admin Aspirin 81 mg DAILY PO 02/22/25 10:00 Atorvastatin Calcium 20 mg HS PO 02/21/25 22:00 Methylprednisolone Sodium Succinate 40 mg Q8HR IV 02/21/25 22:00 Ceftriaxone Sodium 50 ml @ 100 mls/hr DAILY@09 IV 02/22/25 09:00 Famotidine 20 mg Q12HR IV 02/21/25 22:00 Albuterol 2.5 mg Q4HPRN PRN NEB 02/21/25 21:30 Ipratropium [place] 0.5 mg Q4HPRN PRN NEB 02/21/25 21:30 Carvedilol 3.125 mg Q12HR PO 02/21/25 22:00 Sodium Chloride 10 ml Q8HR IV 02/21/25 22:00 Acetaminophen/ Hydrocodone Bitart 1 tab Q4HP PRN PO 02/21/25 21:30 Ondansetron HCl 4 mg Q4HP PRN IV 02/21/25 21:30 Docusate Sodium 100 mg BIDPRN PRN PO 02/21/25 21:30 Acetaminophen 650 mg Q6HP PRN PO 02/21/25 21:30 Exam Vital Signs Vital Signs Date Time Temp Pulse Resp B/P (MAP) Pulse Ox O2 Delivery O2 Flow Rate FiO2 02/21/25 21:35 97.6 92 16 121/77 93 4.0 36 97.6 02/21/25 20:26 Nasal Cannula* General Appearance: Alert, Oriented X3, Cooperative, No acute distress HEENT: Atraumatic, PERRLA, EOMI, Mucous membr. moist/pink Respiratory: Normal air movement, Other (Diminished breath sounds) Cardiovascular: Regular rate, Normal S1, Normal S2, No murmurs Abdominal: Normal bowel sounds, Soft, No tenderness, No hepatospenomegaly, No masses Extremities: No clubbing, No cyanosis, No edema, Normal pulses, No tenderness/swelling Skin: No rashes, No breakdown, No significant lesion Neuro: Normal speech, Normal tone, Sensation intact, Cranial nerves 3-12 NL, Reflexes 2+, Other (Weakness) Psych/Mental Status: Mental status NL, Mood NL Labs/Xrays Labs Test 02/21/25 16:30 02/21/25 15:13 02/21/25 14:28 02/21/25 13:48 Range/Units Troponin I High Sensitivity 8 </=54 ng/L Urine Color Colorless Yellow Urine Clarity Clear Clear Urine pH 7.5 5.0-9.0 Urine Specific [place] 1.006 1.001-1.035 Urine Protein Negative Negative Urine Ketones Negative Negative Urine Blood Negative Negative /uL Urine Nitrite Negative Negative Urine Bilirubin Negative Negative Urine Urobilinogen Normal Negative mg/dL Urine Leukocyte Esterase Negative Negative /uL Urine RBC 1 0 - 3 /hpf Urine Microscopic WBC < 1 0-3 /HPF Urine Squamous Epithelial Cells None seen <5 /hpf Urine Bacteria None seen None Seen /hpf Urine Glucose 4+ H Normal mg/dL Urine Opiates Screen Neg NEGATIVE Urine Fentanyl Screen Neg NEGATIVE Urine Barbiturates Screen Neg NEGATIVE Urine Phencyclidine Screen Neg NEGATIVE Urine Amphetamines Screen Neg NEGATIVE Urine Benzodiazepines Screen Neg NEGATIVE Urine Cocaine Screen Neg NEGATIVE Urine Cannabinoids Screen Neg NEGATIVE Blood Gas Specimen Type Arterial Blood Gas Sample Site Right radial Blood Gas Patient Temperature 37.0 Arterial Blood Date Drawn [id number] Arterial Blood pH 7.441 7.350-7.450 Arterial Blood Partial Pressure CO2 47.7 35.0-48.0 mmHg Arterial Blood Partial Pressure O2 68.9 L 83.0-108.0 mmHg Arterial Blood HCO3 31.7 H 21.0-28.0 mmol/L Arterial Blood Oxygen Saturation 94.8 94.0-98.0 % Arterial Blood Base Excess 6.4 H -2.0-3.0 mmol/L Arterial Blood Oxyhemoglobin 93.1 L 94.0-98.0 % Arterial Blood Carboxyhemoglobin 1.5 0.5-1.5 % Arterial Blood Methemoglobin 0.3 0.0-1.5 % [place] Test Yes Blood Gas Total Hemoglobin 15.10 13.5-17.5 g/dL Blood Gas Modality Nasal cannula FiO2 % 36.0 White Blood Count 13.7 H 4.4-10.8 10^3/uL Red Blood Count 6.20 H 4.5-5.90 10^6/uL Hemoglobin 15.4 13.5-17.5 g/dL Hematocrit 46.5 41.0-53.0 % Mean Corpuscular Volume 75.1 L 80.0-100.0 fL Mean Corpuscular Hemoglobin 24.8 L 28.0-32.0 pg Mean Corpuscular Hemoglobin Concent 33.1 32.0-36.0 g/dL Red Cell Distribution Width 15.6 H 11.8-14.3 % Platelet Count 188 140-450 10^3/uL Mean Platelet Volume 8.3 6.9-10.8 fL Neutrophils (%) (Auto) 85.9 H 37.0-80.0 % Lymphocytes (%) (Auto) 7.4 L 10.0-50.0 % Monocytes (%) (Auto) 5.5 0.0-12.0 % Eosinophils (%) (Auto) 0.4 0.0-7.0 % Basophils (%) (Auto) 0.8 0.0-2.0 % Neutrophils # (Auto) 11.8 H 1.6-8.6 10 ^3/uL Lymphocytes # (Auto) 1.0 0.4-5.4 10 ^3/uL Monocytes # (Auto) 0.8 0-1.3 10 ^3/uL Eosinophils # (Auto) 0.1 0-0.8 10 ^3/uL Basophils # (Auto) 0.1 0-0.2 10 ^3/uL Nucleated Red Blood Cells 0.1 % Prothrombin Time 10.8 9.3-11.8 sec Prothrombin Time INR 1.02 0.9-1.15 Activated Partial Thromboplast Time 28.1 24.5-34.5 SEC Sodium Level 144 136-145 mmol/L Potassium Level 3.7 3.5-5.1 mmol/L Chloride Level 104 98-107 mmol/L Carbon Dioxide Level 33 H 20-31 mmol/L Anion Gap 7 5-15 Blood Urea Nitrogen 21 9-23 mg/dL Creatinine 0.92 0.700-1.30 mg/dL Glomerular Filtration Rate Calc 95 >90 mL/min BUN/Creatinine Ratio 22.8 H 10.0-20.0 Serum Glucose 101 74-106 mg/dL Lactic Acid Level 1.2 0.4-2.0 mmol/L Calcium Level 9.3 8.7-10.4 mg/dL Magnesium Level 1.9 1.6-2.6 mg/dL Total Bilirubin 0.3 0.2-1.0 mg/dL Aspartate Amino Transferase (AST) 18 13-40 U/L Alanine Aminotransferase (ALT) 19 7-40 U/L Alkaline Phosphatase 105 46-116 U/L B-Type Natriuretic Peptide 43.65 0-100 pg/mL Total Protein 6.4 5.7-8.2 g/dL Albumin 4.3 3.2-4.8 g/dL Plasma/Serum Blood Alcohol < 3.0 <10 mg/dL Test 02/21/25 13:30 Range/Units POC Glucose 116 H 70-106 mg/dl PATIENT: VINCENZO JULIAN ACCT: [id number] UNIT: [id number] : 1965 LOC: ER ROOM / BED: / AGE / SEX: 59 / M ADM STATUS: REG ER SERVICE 1329 ORDERING PHYSICIAN: YARED AGUILAR DO PROCEDURE(s): CXRP - CHEST PORTABLE REASON: weak/sob/confusion ORDER NUMBER(s): [id number], ACCESSION NUMBER(s): [id number] CHEST RADIOGRAPH Indication: weak/sob/confusion Technique: Single frontal view of the chest was obtained COMPARISON: XY CHEST PORTABLE on DOS: 07/01/23 FINDINGS: Lines and Tubes: Left chest wall AICD. Lungs: Mild congestion Pleura: No effusion. No pneumothorax. Cardiomediastinal contours: Unremarkable Bones: Unremarkable IMPRESSION: Mild congestion. ORDERING PHYSICIAN: YARED AGUILAR DO PROCEDURE(s): HWOCT - HEAD WITHOUT CONTRAST REASON: altered ORDER NUMBER(s): [id number], ACCESSION NUMBER(s): [id number] EXAM: CT HEAD WITHOUT CONTRAST HISTORY: altered COMPARISON: None TECHNIQUE: Axial images of the head were obtained and reformatted in coronal and sagittal planes. All CT scans at this medical facility are performed using dose modulation techniques as appropriate to a performed exam including the following: Automated exposure control was utilized; adjustment of the MA and/or KV according to patient size; and use of iterative reconstruction technique. CT Dose: CTDI volume is 58.46 mGy. Dose-length product is 1035.18 mGy*cm FINDINGS: There is no evidence of acute intracranial hemorrhage, mass, mass effect midline shift. There is no hydrocephalus or extra-axial fluid collection. Solorzano-white matter differentiation is maintained. There is near complete opacification of the ethmoid and maxillary sinuses. Mastoid air cells are clear. The calvarium is intact. IMPRESSION: 1. No acute intracranial process. Assessment/Plan Assessment/Plan Hypoxemia Leukocytosis, unspecified Dyspnea Altered level of consciousness Plan 1. Admit to telemetry unit 2. Breathing treatment 3. Pain control management 4. IV antibiotic management 5. Management of fluids and electrolytes 6. Consultation for hospitalist 7. Diagnostic test chest x-ray 8. DVT prophylaxis on SCDs 9. Repeat labs CBC, CMP in a.m. 10. Home medication reviewed and reconciled 11. Continue with current medical management 12. Treatment plan discussed with patient and RN. Patient verbalized understanding. Plan discussed with: Patient, Other (RN) My Orders Orders - LORETTA QUINTANILLA DNP Procedure Category Date Status Time Aspirin Tablet PHA 02/22/25 In Process 10:00 Atorvastatin (Lipitor) PHA 02/21/25 In Process 22:00 Methylprednisolone PHA 02/21/25 In Process Sod Succ (Solu Medrol 22:00 Ceftriaxone 1gm/50ml PHA 02/22/25 In Process D5w (Rocephin) 09:00 Famotidine Injection PHA 02/21/25 In Process (Pepcid Injection) 22:00 Albuterol Medneb PHA 02/21/25 In Process (Ventolin Medneb) 21:30 Ipratropium Medneb PHA 02/21/25 In Process (Atrovent Medneb) 21:30 Carvedilol Tablet PHA 02/21/25 In Process (Coreg Tablet) 22:00 Allergies NANETTE 02/21/25 In Process 21:16 Code Status CODE 02/21/25 Transmitted 21:16 Sodium Chloride Lock PHA 02/21/25 In Process (Saline Lock Ns) 22:00 Oxygen Per Hour RT 02/21/25 Transmitted 21:16 Hydrocodone-Acet PHA 02/21/25 In Process 5/325mg Tab ([place] 21:30 Ondansetron Hcl PHA 02/21/25 In Process (Zofran) 21:30 Docusate Sodium PHA 02/21/25 In Process Capsule (Colace 21:30 Fall Risk Precautions NANETTE 02/21/[address] 21:16 Complete Blood Count LAB 02/22/25 Verified 04:00 Comprehensive LAB 02/22/25 Verified Metabolic Panel 04:00 Cardiac DIET 02/22/25 Transmitted Diet-2gna,Lofat,Lochol Breakfast Condition: Serious NANETTE 02/21/25 In Process 21:16 Acetaminophen Tablet PHA 02/21/25 In Process (Tylenol Tablet) 21:30 Sequential NANETTE 02/21/25 In Process Compression Device Admit ADMIT 02/21/25 Verified 22:19 Nitroglycerin PHA 02/21/25 Verified Sublingual (Ntrostat 22:30 Morphine Sulfate PHA 02/21/25 Verified Injection 22:30 Notify Md Of Changes NANETTE 02/21/25 Verified From Base 22:19 Balling Head Tender For [facility] 02/21/25 Verified 24 Hours 22:19 Emergency Dysrhythmia [facility] 02/21/25 Verified Protocol 22:19 Rhythm Strips Once [facility] 02/21/25 Verified Every Shift 22:19 Oxygen By Nasal RT 02/21/25 Verified Cannula 22:19 Problem List: (1) Hypoxemia (2) Leukocytosis, unspecified (3) Dyspnea (4) Altered level of consciousness Date of Service: February 21, 2025 Billing Provider: LORETTA QUINTANILLA DNP Common Visit Codes: [id number] INP/OBS CARE (HIGH) LORETTA QUINTANILLA DNP February 21, 2025 22:20
[2025-02-21] MEDS ORDERED: NITROGLYCERIN 0.4 MG SL TAB SL PRN (22:30)
[2025-02-21] MEDS ORDERED: MORPHINE SULFATE INJ 2 MG/ml SYRG IV PRN (22:30)
[2025-02-21] MEDS: SODIUM CHLOR 0.9% PF (SALINE LOCK) 10ML VIAL/SYR IV SCH (23:15)
[2025-02-21] MEDS: ATORVASTATIN 20 MG TAB PO SCH (23:17)
[2025-02-21] MEDS: methylPREDNISolone SOD SUCC 40 MG/ML VL IV SCH (23:18)
[2025-02-21] MEDS: FAMOTIDINE (10MG/ML) 2ML VL IV SCH (23:18)
[2025-02-21] MEDS: CARVEDILOL 3.125 MG TAB PO SCH (23:18)
[2025-02-22] VITALS (12 sets, daily range): BP systolic 147–162; BP diastolic 81–94; PULSE 70–92; RESP 15–24; TEMP 98.1–98.4; O2SAT 90–96
[2025-02-22 04:09] LABS: Eosinophils # (auto) 0 10 ^3/uL (0-0.8); Hemoglobin 15.7 g/dL (13.5-17.5); Lymphocytes # (auto) 0.7 10 ^3/uL (0.4-5.4); Monocytes # (auto) 0.1 10 ^3/uL (0-1.3)
[2025-02-22 04:11] LABS: Basophils # (auto) 0.1 10 ^3/uL (0-0.2); Basophils % (auto) 0.6 % (0.0-2.0); Hematocrit 47.4 % (41.0-53.0); Lymphocytes % (auto) 7.8 % (10.0-50.0); Mean Corpuscular Hemoglobin 24.9 pg (28.0-32.0); Mean Corpuscular Hgb Conc. 33.1 g/dL (32.0-36.0); Mean Corpuscular Volume 75.2 fL (80.0-100.0); Monocytes % (auto) 1.5 % (0.0-12.0); Neutrophils # (auto) 8.1 10 ^3/uL (1.6-8.6); Neutrophils % (auto) 90.1 % (37.0-80.0); Nucleated Red Blood Cells % 0.1 %; Platelet Count (auto) 177 10^3/uL (140-450); Red Cell Distribution Width 15.5 % (11.8-14.3)
[2025-02-22 04:32] LABS: Alanine Aminotransferase 17 U/L (7-40); Alkaline Phosphatase 101 U/L (46-116); Anion Gap 9 (5-15); BUN/Creatinine Ratio 20.6 (10.0-20.0); Blood Urea Nitrogen 20 mg/dL (9-23); Calcium 9.4 mg/dL (8.7-10.4); Chloride 104 mmol/L (98-107); Potassium 3.8 mmol/L (3.5-5.1); Total Protein 6.8 g/dL (5.7-8.2)
[2025-02-22 04:33] LABS: Albumin 4.3 g/dL (3.2-4.8)
[2025-02-22 04:34] LABS: Aspartate Aminotransferase 8 U/L (13-40); Bilirubin, Total 0.2 mg/dL (0.2-1.0); Carbon Dioxide 32 mmol/L (20-31); Glucose 144 mg/dL (74-106); Sodium 145 mmol/L (136-145)
[2025-02-22] MEDS: ALBUTEROL SULF 2.5 MG/0.5ML(0.5%) NEB SOLN NEB PRN (07:45)
[2025-02-22] MEDS: IPRATROPIUM BROM 0.5 MG/2.5ML INH SOL NEB PRN (07:45)
[2025-02-22] MEDS: ASPirin 81 mg TAB PO SCH (10:42)
[2025-02-22] MEDS: cefTRIAXone 1GM/50ML D5W 50 ML IV SCH (10:42)
[2025-02-22] MEDS: NICOTINE 21MG/24 HR TOPICAL PATCH TD ONE (11:33)
[2025-02-22] MEDS: QUEtiapine FUMARATE 100 MG TAB PO ONE (11:34)
--- NOTE | 2025-02-22 18:26 | DVHPN2 ---
Subjective in bed resting comfortable Changes from previous H/P or p: No Changes Eyes: No Pain, No Vision change, No Conjunctivae inflammation, No Eyelid inflammation, No Other, No Redness ENT: No Ear pain, No Ear discharge, No Nose pain, No Nose discharge, No Nose congestion, No Mouth pain, No Mouth swelling, No Throat pain, No Throat swelling, No Other Cardiovascular: No Chest Pain, No Palpitations, No Orthopnea, No Paroxysmal Noc. Dyspnea, No Edema, No Lt Headedness, No Other Respiratory: No Cough, No Dry; Shortness of breath, SOB with excertion; No Wheezing, No Hemoptysis, No Pleuritic Pain, No Sputum, No Other Gastrointestinal: No Nausea, No Vomiting, No Abdominal Pain, No Diarrhea, No Constipation, No Melena, No Hematochezia, No Other Genitourinary: No Dysuria, No Frequency, No Incontinence, No Hematuria, No Retention, No Other Musculoskeletal: No other, No neck pain, No shoulder pain, No arm pain, No back pain, No hand pain, No leg pain, No foot pain Skin: No Rash, No Lesions, No Jaundice, No Bruising, No Other Objective Vitals Vital Signs Date Time Temp Pulse Resp B/P (MAP) Pulse Ox O2 Delivery O2 Flow Rate FiO2 02/22/25 16:00 98.2 88 18 146/82 (103) 92 98.2 02/22/25 14:46 Nasal Cannula 2.0 02/22/25 14:46 28 Medications Current Medications Medications Dose Ordered Sig/Tiffanie Route Start Time Stop Time Status Last Admin Dose Admin Aspirin 81 mg DAILY PO 02/22/25 10:00 02/22/25 10:42 81 MG Atorvastatin Calcium 20 mg HS PO 02/21/25 22:00 02/21/25 23:17 20 MG Methylprednisolone Sodium Succinate 40 mg Q8HR IV 02/21/25 22:00 02/22/25 14:32 40 MG Ceftriaxone Sodium 50 ml @ 100 mls/hr DAILY@09 IV 02/22/25 09:00 02/22/25 10:42 100 MLS/HR Famotidine 20 mg Q12HR IV 02/21/25 22:00 02/22/25 10:42 20 MG Albuterol 2.5 mg Q4HPRN PRN NEB 02/21/25 21:30 02/22/25 14:46 2.5 MG Ipratropium [place] 0.5 mg Q4HPRN PRN NEB 02/21/25 21:30 02/22/25 14:45 0.5 MG Carvedilol 3.125 mg Q12HR PO 02/21/25 22:00 02/22/25 10:43 3.125 MG Sodium Chloride 10 ml Q8HR IV 02/21/25 22:00 02/22/25 14:32 10 ML Acetaminophen/ Hydrocodone Bitart 1 tab Q4HP PRN PO 02/21/25 21:30 Ondansetron HCl 4 mg Q4HP PRN IV 02/21/25 21:30 Docusate Sodium 100 mg BIDPRN PRN PO 02/21/25 21:30 Acetaminophen 650 mg Q6HP PRN PO 02/21/25 21:30 Nitroglycerin 0.4 mg Q5MINP PRN SL 02/21/25 22:30 Morphine Sulfate 2 mg Q30M PRN IV 02/21/25 22:30 Nicotine 1 patch DAILY TD 02/23/25 10:00 Quetiapine Fumarate 150 mg BID PO 02/22/25 22:00 Laboratory Results Laboratory Tests 02/22/25 03:50 Chemistry Test 02/22/25 03:50 Albumin 4.3 g/dL (3.2-4.8) Calcium Level 9.4 mg/dL (8.7-10.4) Total Protein 6.8 g/dL (5.7-8.2) LFT Test 02/22/25 03:50 Alanine Aminotransferase (ALT) 17 U/L (7-40) Alkaline Phosphatase 101 U/L (46-116) Aspartate Amino Transferase (AST) 8 U/L (13-40) L Total Bilirubin 0.2 mg/dL (0.2-1.0) Urinalysis Test 02/21/25 15:13 Urine Color Colorless (Yellow) Urine Clarity Clear (Clear) Urine pH 7.5 (5.0-9.0) Urine Specific [place] 1.006 (1.001-1.035) Urine Protein Negative (Negative) Urine Ketones Negative (Negative) Urine Blood Negative /uL (Negative) Urine Nitrite Negative (Negative) Urine Bilirubin Negative (Negative) Urine Urobilinogen Normal mg/dL (Negative) Urine Leukocyte Esterase Negative /uL (Negative) Urine RBC 1 /hpf (0 - 3) Urine Microscopic WBC < 1 /HPF (0-3) Urine Squamous Epithelial Cells None seen /hpf (<5) Urine Bacteria None seen /hpf (None Seen) Urine Glucose 4+ mg/dL (Normal) H Assessment/Plan Assessment/Plan Hypoxemia Leukocytosis, unspecified Dyspnea Altered level of consciousness Continue IV abx off bipap wean off oxygen Plan discussed with: Patient My Orders Orders - PETE STUART MD Procedure Category Date Status Time Nicotine 21mg/24hr PHA 02/23/25 In Process (Nicoderm 21mg/24hr) 10:00 Quetiapine Fumarate PHA 02/22/25 In Process Tablet (Seroquel Tab 22:00 Ss Eval For Home CONS 02/22/25 Transmitted Oxygen * Emergency Vehicle Operations Instructor CONS 02/22/25 Transmitted Consult Date of Service: February 22, 2025 Billing Provider: PETE STUART MD Common Visit Codes: [id number] INP/OBS CARE(HIGH) PETE STUART MD February 22, 2025 18:26
[2025-02-22] MEDS ORDERED: MAGN241.6 PO (19:55)
[2025-02-22] MEDS ORDERED: NICO7DIS31 (19:55)
[2025-02-22] MEDS ORDERED: CARV12.544 PO (19:55)
[2025-02-22] MEDS ORDERED: ALBUAER3 PO (19:55)
[2025-02-22] MEDS ORDERED: FURO20TA4 PO (19:55)
[2025-02-22] MEDS ORDERED: AMLO1TAB23 PO (19:55)
[2025-02-22] MEDS ORDERED: BUDE1AER16 INH (19:55)
[2025-02-22] MEDS ORDERED: ALBU0.084 (19:55)
[2025-02-22] MEDS: LORazepam 2MG/ML-1ML VIAL IV PRN (22:13)
[2025-02-22] MEDS: QUEtiapine FUMARATE 100 MG TAB PO SCH (22:24)
[2025-02-23] VITALS (12 sets, daily range): BP systolic 137–153; BP diastolic 73–97; PULSE 69–87; RESP 17–22; TEMP 97.9–98.2; O2SAT 92–96
[2025-02-23] MEDS: HYDROcodone-ACET 5/325MG TAB PO PRN (07:46)
[2025-02-23] MEDS: NICOTINE 21MG/24 HR TOPICAL PATCH TD SCH (09:44)
--- NOTE | 2025-02-23 15:39 | DVHPN2 ---
Subjective in bed resting comfortable Changes from previous H/P or p: No Changes Eyes: No Pain, No Vision change, No Conjunctivae inflammation, No Eyelid inflammation, No Other, No Redness ENT: No Ear pain, No Ear discharge, No Nose pain, No Nose discharge, No Nose congestion, No Mouth pain, No Mouth swelling, No Throat pain, No Throat swelling, No Other Cardiovascular: No Chest Pain, No Palpitations, No Orthopnea, No Paroxysmal Noc. Dyspnea, No Edema, No Lt Headedness, No Other Respiratory: No Cough, No Dry; Shortness of breath, SOB with excertion; No Wheezing, No Hemoptysis, No Pleuritic Pain, No Sputum, No Other Gastrointestinal: No Nausea, No Vomiting, No Abdominal Pain, No Diarrhea, No Constipation, No Melena, No Hematochezia, No Other Genitourinary: No Dysuria, No Frequency, No Incontinence, No Hematuria, No Retention, No Other Musculoskeletal: No other, No neck pain, No shoulder pain, No arm pain, No back pain, No hand pain, No leg pain, No foot pain Skin: No Rash, No Lesions, No Jaundice, No Bruising, No Other Objective Vitals Vital Signs Date Time Temp Pulse Resp B/P (MAP) Pulse Ox O2 Delivery O2 Flow Rate FiO2 02/23/25 13:00 98.1 76 20 141/81 (101) 94 98.1 02/23/25 08:05 Nasal Cannula* 2 28 Intake/Output Intake and Output 02/23/25 07:00 Intake Total 1955 ml Balance 1955 ml Intake Oral 1905 ml IV Total 50 ml # Voids 3 Medications Current Medications Medications Dose Ordered Sig/Tiffanie Route Start Time Stop Time Status Last Admin Dose Admin Aspirin 81 mg DAILY PO 02/22/25 10:00 02/23/25 09:41 81 MG Atorvastatin Calcium 20 mg HS PO 02/21/25 22:00 02/22/25 21:42 20 MG Methylprednisolone Sodium Succinate 40 mg Q8HR IV 02/21/25 22:00 02/23/25 14:08 40 MG Ceftriaxone Sodium 50 ml @ 100 mls/hr DAILY@09 IV 02/22/25 09:00 02/23/25 09:39 100 MLS/HR Famotidine 20 mg Q12HR IV 02/21/25 22:00 02/23/25 09:41 20 MG Albuterol 2.5 mg Q4HPRN PRN NEB 02/21/25 21:30 02/23/25 00:19 2.5 MG Ipratropium [place] 0.5 mg Q4HPRN PRN NEB 02/21/25 21:30 02/23/25 00:19 0.5 MG Carvedilol 3.125 mg Q12HR PO 02/21/25 22:00 02/23/25 09:44 3.125 MG Sodium Chloride 10 ml Q8HR IV 02/21/25 22:00 02/23/25 14:08 10 ML Acetaminophen/ Hydrocodone Bitart 1 tab Q4HP PRN PO 02/21/25 21:30 02/23/25 07:46 1 TAB Ondansetron HCl 4 mg Q4HP PRN IV 02/21/25 21:30 Docusate Sodium 100 mg BIDPRN PRN PO 02/21/25 21:30 Acetaminophen 650 mg Q6HP PRN PO 02/21/25 21:30 Nitroglycerin 0.4 mg Q5MINP PRN SL 02/21/25 22:30 Morphine Sulfate 2 mg Q30M PRN IV 02/21/25 22:30 Nicotine 1 patch DAILY TD 02/23/25 10:00 02/23/25 09:44 1 PATCH Quetiapine Fumarate 150 mg BID PO 02/22/25 22:00 02/23/25 09:42 150 MG Lorazepam 1 mg Q8HP PRN IV 02/22/25 22:00 Laboratory Results Laboratory Tests 02/22/25 03:50 Urinalysis Test 02/21/25 15:13 Urine Color Colorless (Yellow) Urine Clarity Clear (Clear) Urine pH 7.5 (5.0-9.0) Urine Specific [place] 1.006 (1.001-1.035) Urine Protein Negative (Negative) Urine Ketones Negative (Negative) Urine Blood Negative /uL (Negative) Urine Nitrite Negative (Negative) Urine Bilirubin Negative (Negative) Urine Urobilinogen Normal mg/dL (Negative) Urine Leukocyte Esterase Negative /uL (Negative) Urine RBC 1 /hpf (0 - 3) Urine Microscopic WBC < 1 /HPF (0-3) Urine Squamous Epithelial Cells None seen /hpf (<5) Urine Bacteria None seen /hpf (None Seen) Urine Glucose 4+ mg/dL (Normal) H Microbiology Microbiology Date/Time Source Procedure Growth Status 02/23/25 06:00 Nose MRSA Screen - Final Complete Assessment/Plan Assessment/Plan Hypoxemia Leukocytosis, unspecified Dyspnea Altered level of consciousness Continue IV abx off bipap wean off oxygen duonebs Plan discussed with: Patient My Orders Orders - PETE STUART MD Procedure Category Date Status Time * Senior Storage Engineer CONS 02/22/25 Transmitted Consult Date of Service: February 23, 2025 Billing Provider: PETE STUART MD Common Visit Codes: [id number] INP/OBS CARE(HIGH) PETE STUART MD February 23, 2025 15:39
[2025-02-24] VITALS (11 sets, daily range): BP systolic 149–161; BP diastolic 79–101; PULSE 63–84; RESP 15–18; TEMP 97.7–98.2; O2SAT 80–100
[2025-02-24] MEDS ORDERED: PRED20TA2 PO (11:37)
[2025-02-24] MEDS ORDERED: DOXY-286 PO (11:37)
--- NOTE | 2025-02-24 11:40 | DVHDS2 ---
Discharge Summary Date of Admission February 21, 2025 at 22:19 Date of Discharge: February 24, 2025 Admitting Diagnosis Acute Resp Failure Labs/Diagnostic Data: Laboratory Results Test 02/22/25 03:50 02/21/25 16:30 02/21/25 15:13 02/21/25 14:28 White Blood Count 9.0 10^3/uL (4.4-10.8) Red Blood Count 6.30 10^6/uL (4.5-5.90) Hemoglobin 15.7 g/dL (13.5-17.5) Hematocrit 47.4 % (41.0-53.0) Mean Corpuscular Volume 75.2 fL (80.0-100.0) Mean Corpuscular Hemoglobin 24.9 pg (28.0-32.0) Mean Corpuscular Hemoglobin Concent 33.1 g/dL (32.0-36.0) Red Cell Distribution Width 15.5 % (11.8-14.3) Platelet Count 177 10^3/uL (140-450) Mean Platelet Volume 8.3 fL (6.9-10.8) Neutrophils (%) (Auto) 90.1 % (37.0-80.0) Lymphocytes (%) (Auto) 7.8 % (10.0-50.0) Monocytes (%) (Auto) 1.5 % (0.0-12.0) Eosinophils (%) (Auto) 0.0 % (0.0-7.0) Basophils (%) (Auto) 0.6 % (0.0-2.0) Neutrophils # (Auto) 8.1 10 ^3/uL (1.6-8.6) Lymphocytes # (Auto) 0.7 10 ^3/uL (0.4-5.4) Monocytes # (Auto) 0.1 10 ^3/uL (0-1.3) Eosinophils # (Auto) 0 10 ^3/uL (0-0.8) Basophils # (Auto) 0.1 10 ^3/uL (0-0.2) Nucleated Red Blood Cells 0.1 % Sodium Level 145 mmol/L (136-145) Potassium Level 3.8 mmol/L (3.5-5.1) Chloride Level 104 mmol/L (98-107) Carbon Dioxide Level 32 mmol/L (20-31) Anion Gap 9 (5-15) Blood Urea Nitrogen 20 mg/dL (9-23) Creatinine 0.97 mg/dL (0.700-1.30) Glomerular Filtration Rate Calc 89 mL/min (>90) BUN/Creatinine Ratio 20.6 (10.0-20.0) Serum Glucose 144 mg/dL (74-106) Calcium Level 9.4 mg/dL (8.7-10.4) Total Bilirubin 0.2 mg/dL (0.2-1.0) Aspartate Amino Transferase (AST) 8 U/L (13-40) Alanine Aminotransferase (ALT) 17 U/L (7-40) Alkaline Phosphatase 101 U/L (46-116) Total Protein 6.8 g/dL (5.7-8.2) Albumin 4.3 g/dL (3.2-4.8) Troponin I High Sensitivity 8 ng/L (</=54) Urine Color Colorless (Yellow) Urine Clarity Clear (Clear) Urine pH 7.5 (5.0-9.0) Urine Specific [place] 1.006 (1.001-1.035) Urine Protein Negative (Negative) Urine Ketones Negative (Negative) Urine Blood Negative /uL (Negative) Urine Nitrite Negative (Negative) Urine Bilirubin Negative (Negative) Urine Urobilinogen Normal mg/dL (Negative) Urine Leukocyte Esterase Negative /uL (Negative) Urine RBC 1 /hpf (0 - 3) Urine Microscopic WBC < 1 /HPF (0-3) Urine Squamous Epithelial Cells None seen /hpf (<5) Urine Bacteria None seen /hpf (None Seen) Urine Glucose 4+ mg/dL (Normal) Urine Opiates Screen Neg (NEGATIVE) Urine Fentanyl Screen Neg (NEGATIVE) Urine Barbiturates Screen Neg (NEGATIVE) Urine Phencyclidine Screen Neg (NEGATIVE) Urine Amphetamines Screen Neg (NEGATIVE) Urine Benzodiazepines Screen Neg (NEGATIVE) Urine Cocaine Screen Neg (NEGATIVE) Urine Cannabinoids Screen Neg (NEGATIVE) Blood Gas Specimen Type Arterial Blood Gas Sample Site Right radial Blood Gas Patient Temperature 37.0 Arterial Blood Date Drawn [id number] Arterial Blood pH 7.441 (7.350-7.450) Arterial Blood Partial Pressure CO2 47.7 mmHg (35.0-48.0) Arterial Blood Partial Pressure O2 68.9 mmHg (83.0-108.0) Arterial Blood HCO3 31.7 mmol/L (21.0-28.0) Arterial Blood Oxygen Saturation 94.8 % (94.0-98.0) Arterial Blood Base Excess 6.4 mmol/L (-2.0-3.0) Arterial Blood Oxyhemoglobin 93.1 % (94.0-98.0) Arterial Blood Carboxyhemoglobin 1.5 % (0.5-1.5) Arterial Blood Methemoglobin 0.3 % (0.0-1.5) [place] Test Yes Blood Gas Total Hemoglobin 15.10 g/dL (13.5-17.5) Blood Gas Modality Nasal cannula FiO2 % 36.0 Test 02/21/25 13:48 02/21/25 13:30 Prothrombin Time 10.8 sec (9.3-11.8) Prothrombin Time INR 1.02 (0.9-1.15) Activated Partial Thromboplast Time 28.1 SEC (24.5-34.5) Lactic Acid Level 1.2 mmol/L (0.4-2.0) Magnesium Level 1.9 mg/dL (1.6-2.6) B-Type Natriuretic Peptide 43.65 pg/mL (0-100) Plasma/Serum Blood Alcohol < 3.0 mg/dL (<10) POC Glucose 116 mg/dl (70-106) Other Laboratory Tests 02/22/25 03:50 Brief Hx & Hospital Course: The patient is a 59-year-old male with past medical history of COPD, TIA, HI, and hypertension who presented to [facility] ED for evaluation of altered level of consciousness. As reported by niece, patient is homeless, has been confused, very lethargic, arousable to verbal stimuli, worsening shortness of breaths, having difficulty maintaining coherence few days ago. Patient was seen at [facility] x 2 days ago for the same complaint and was discharged with Prednisone. Patient was treated with IV Abx, will be discharged home with home O2 and Doxycycline and Prednisone. Patient will need to followup with DC clinic. Condition at Discharge: Poor Final Diagnosis/Problems List Acute Resp Failure Hypoxic Encephalopathy Pulm Edema Discharge Disposition: Home Discharge Instruct/Medications Diet: Cardiac 2g Na,low cholest Activity: Light activity Follow Up/Referral: DC Clinic Medications: Resume Home Meds Discharge Statement: "Patient was advised to return to the ER or call 911 if any headaches, dizziness, shortness of breath, chest pain, abdominal pain, bleeding, fevers, or worsening of medical condition. Patient was counseled about treatment plan, medications, possible side effects, patientverbalized understanding. All questions were answered to the best of my ability. This discharge took greater then 30 minutes in planning, reviewing documentation, counseling the patient, and discussing with other team members." ASSESSMENT ASSESSMENT Assessment Date of Service: February 24, 2025 Billing Provider: JULISSA LANDA MD Common Visit Codes: 66067-KHR/OBS DISCH DAY >30min JULISSA LANDA MD February 24, 2025 11:40
[2025-02-24] MEDS: POTASSIUM CHL 20 Meq TABLET PO ONE (12:59)
[2025-02-24] MEDS: FUROSEMIDE 40 MG/4 ML VIAL IV ONE (13:01)
== END 2025-02-24 14:00 | disposition home or self-care (01) | DRG 91 ==
LOC: ER 13:04 → OVERFLOW 22:19 → TELE-EAST 02-22 19:01
PROVIDERS: ADMIT Internal Medicine; ATTEND Internal Medicine
DX: G93.1 Anoxic brain damage, not elsewhere classified (principal); J96.01 Acute respiratory failure with hypoxia; J81.1 Chronic pulmonary edema; Z59.00 Homelessness unspecified; D72.829 Elevated white blood cell count, unspecified; J44.9 Chronic obstructive pulmonary disease, unspecified; I10 Essential (primary) hypertension; F17.210 Nicotine dependence, cigarettes, uncomplicated; F12.90 Cannabis use, unspecified, uncomplicated; I25.2 Old myocardial infarction; Z86.73 Personal history of transient ischemic attack (TIA), and cerebral infarction without residual deficits
CPT/HCPCS: 36415; 36600; 70450; 71045; 80053; 80307; 80320; 81001; 82805; 82962; 83605; 83735; 83880; 84484; 85025; 85610; 85730; 87081; 94640; 96365; 96375; 99291; G0378; J3490

== ENCOUNTER 2025-04-28 07:01 | Day surgery (SDC) | payer MEDICARE, MEDICAID ==
[~2025-04-28] VITALS: Ht 180.3 cm; Wt 94.3 kg
[2025-04-28] VITALS (8 sets, daily range): BP systolic 97–139; BP diastolic 64–83; PULSE 61–69; RESP 14–18; TEMP 97.6; O2SAT 93–95
[~2025-04-28 07:01] MED LIST changes: +ALBU0.084; +ALBUAER3 PO; -AML5T PO; +AMLO1TAB23 PO; -ASPI1TAB19 PO; -ATOR40TA52 PO; -BISA10SU60 PR; -BUDE0.5S IN; +BUDE1AER16 INH; -CRAN450T PO; -DOCU-94 PO; +FURO20TA4 PO; -HYDR-4902 PO; -HYDR25TA88 PO; -LACTCAP20 PO; -LISI-285 PO; -MAGNSUS48 PO; +METO-6 PO; +PRED20TA2 PO; -QUET50TA PO; +SACU1TAB PO; -VITA100C2 PO; -ZINC220C8 PO; -ZIPR20CA27 PO
[2025-04-28] MEDS: IODIXANOL 320MG/ML 100ML BTL IV ONE (07:30)
[2025-04-28] MEDS: ANGIOMAX 250 MG VIAL IV ONE (08:34)
[2025-04-28] MEDS: VERAPAMIL 2.5MG/ML INJ 2ML VIAL IV ONE (08:34)
[2025-04-28] MEDS: HEPARIN SODIUM (PORCINE) 5000 UNITS/ML 1ML VIAL ONE (08:34)
[2025-04-28] MEDS: SODIUM CHL 0.9% 0 ML ONE (08:35)
[2025-04-28] MEDS: fentaNYL CITRATE 100 MCG/2 ML VL ONE (08:35)
[2025-04-28] MEDS: MIDAZOLAM HCL 2MG/2ML 2ml VIAL (1mg/ml) ONE (08:35)
[2025-04-28] MEDS: LIDOCAINE 2%HCL (LOCAL ANESTH.) INJ 20ML MDV ONE (08:35)
--- NOTE | 2025-04-28 09:10 | DVHOP2 ---
Operative Report Operative Report CARDIAC COLLAR BAND CREASER PROCEDURE REPORT [place], [place] Date of Service: 04/28/25 Collector: Ildefonso Lopez MD PROCEDURES PERFORMED: Coronary angiogram, left heart catheterization, conscious sedation administration and supervision, less than 15 minutes; fluoroscopy use and interpretation. PREOPERATIVE DIAGNOSES: Abnormal stress test with CCS class 3 angina, POSTOP DIAGNOSIS: no severe cad, obesity, HTN, tobacco, copd DESCRIPTION OF PROCEDURE: The patient or appropriate family signed informed consent understanding the risks, benefits and alternatives of the procedure, they wished to proceed. The patient was brought to the cardiac equipment operator/laborer in n.p.o. state. The patient was prepped in a sterile fashion. Sedation was used per cardiac cath protocol. I administered 2 mL of 2% lidocaine to the right wrist. With an antegrade front wall puncture. I cannulated the right radial artery and placed a 6-[place] Glidesheath slender. Next, an intra-arterial spasmolytic was administered. Next, a - 6French [place] catheter were used for coronary angiogram and LVEDP measurement and pressure pullback. At the completion of procedure, all guides and wires were removed, and there were no immediate complications. 4000 U of IV heparin given. FINDINGS: RCA: Moderate vessel off the right sinus of Valsalva, there is no severe flow limiting stenosis. LEFT MAIN: Moderate size left main, it bifurcates into LAD and circumflex. no stenosis CIRCUMFLEX: Moderate caliber vessel coming off the left main with no flow limiting stenosis. LAD: LAD is a moderate caliber vessel coming of the left main. no stenosis LVEDP of 12 mmhg CONCLUSIONS: 1. NO severe epicardial CAD noted 2. Normal LVEDP PLAN: Aggressive risk factor modification and medical management for the patient. ILDEFONSO LOPEZ MD Apr 28, 2025 09:10
--- NOTE | 2025-04-29 07:49 | ECG ---
[facility] Test Date: 2025-04-28 Test Time: 07:52:06 Pat Name: VINCENZO JULIAN Department: Room: Gender: Size Worker: Francoise : 1965 Requested By: ILDEFONSO LOPEZ Order Number: [id number] Reading MD: Arsh Meléndez Measurements Intervals [place] Rate: 68 P: 79 CT: 178 QRS: -25 QRSD: 112 T: 163 QT: 490 QTc: 521 Interpretive Statements Sinus rhythm with premature supraventricular complexes ST & T wave abnormality, consider lateral ischemia Prolonged QT Electronically Signed On 05-01-2025 19:16:32 PDT by Arsh Meléndez Please click the below link to view image of tracing.
== END 2025-04-28 12:34 | disposition home or self-care (01) ==
LOC: CATH 07:01
PROVIDERS: ATTEND Internal Medicine
DX: R94.39 Abnormal result of other cardiovascular function study (principal); I20.9 Angina pectoris, unspecified; I49.1 Atrial premature depolarization; I50.32 Chronic diastolic (congestive) heart failure; E66.9 Obesity, unspecified; I11.0 Hypertensive heart disease with heart failure; F17.290 Nicotine dependence, other tobacco product, uncomplicated; J44.9 Chronic obstructive pulmonary disease, unspecified; Z79.899 Other long term (current) drug therapy
CPT/HCPCS: 82962; 93005; 93458; C1887; C1894; J1644; J2250; J3010; J7030; Q9967; 99152

== ENCOUNTER 2025-06-24 14:57 | Emergency (ER) | payer MEDICARE, MEDICAID ==
[~2025-06-24] VITALS: Ht 180.3 cm; Wt 92.3 kg
[2025-06-24 15:08] VITALS: BP 102/53; TEMP 98.6
--- NOTE | 2025-06-24 15:25 | ED.PDOC ---
SOB-HPI HPI Comments This is a 60 year old male BIB niece presenting to the ED with chief complaint of SOB. Patient reports that he has been experiencing SOB with associated cough and swelling to all extremities for the past 3-4 days, however, the last day or so he has no recollection of, having no memory of what he did throughout the day. Patient denies any chest pain, dizziness, headache, N/V, fever, chills, abdominal pain, or hemoptysis Chief Complaint: Shortness of Breath Time Seen by MD: 15:22 Primary Care Provider: DR RODRIGUEZ Reviewed notes: Nurses Notes, Medications, Allergies Information Source: Patient, Relative Mode of Arrival: Wheelchair Severity: Moderate Timing: Days Duration: Since onset Context: At Rest PE Risk Factors: None History of: COPD, CHF Prehospital treatment: Oxygen Modifying Factors: Nothing Associated Signs and Symptoms: Cough If cough with SOB: Non-Productive Past Medical History PAST MEDICAL HISTORY: COPD, HTN, [place], TIA Surgical History: Hernia Repair Family History Family History: Reviewed,noncontributory to illness Social History Smoker: Cigarettes Alcohol: Denies ETOH Use Drugs: Marijuana Lives In: Homeless Constitutional: denies: chills, diaphoresis, fatigue, fever, malaise, sweats, weakness, others EENTM: denies: blurred vision, double vision, ear bleeding, ear discharge, ear drainage, ear pain, ear ringing, eye pain, eye redness, hearing loss, mouth pain, mouth swelling, nasal discharge, nose bleeding, nose congestion, nose pain, photophobia, tearing, throat pain, throat swelling, voice changes, others Respiratory: reports: cough, shortness of breath; denies: hemoptysis, orthopne a, SOB at rest, SOB with excertion, stridor, wheezing, others Cardiovascular: reports: edema; denies: chest pain, dizzy spells, diaphoresis, Dyspnea on exertion, irregular heart beat, left arm pain, lightheadedness, palpitations, PND, syncope, others Gastrointestinal: denies: abdomen distended, abdominal pain, blood streaked bowels, constipated, diarrhea, dysphagia, difficulty swallowing, hematemesis, melena, nausea, poor appetite, poor fluid intake, rectal bleeding, rectal pain, vomiting, others Genitourinary: denies: burning, dysuria, flank pain, frequency, hematuria, incontinence, penile discharge, penile sore, pain, testicle pain, testicle swelling, urgency, others Neurological: denies: dizziness, fainting, headache, left sided numbness, left sided weakness, numbness, paresthesia, pre-existing deficit, right sided numbness, right sided weakness, seizure, speech problems, tingling, tremors, weakness, others Musculoskeletal: denies: back pain, gout, joint pain, joint swelling, muscle pain, muscle stiffness, neck pain, others Integumetry: denies: bruises, change in color, change in hair/nails, dryness, laceration, lesions, lumps, rash, wounds, others Allergic/Immunocompromised: denies: Difficulty Healing, Frequent Infections, Hives, Itching, others Hematologic/Lymphatic: denies: anemia, blood clots, easy bleeding, easy bruising, swollen glands, others Endocrine: denies: excessive hunger, excessive sweating, excessive thirst, excessive urination, flushing, intolerance to cold, intolerance to heat, unexplained weight gain, unexplained weight loss, others Psychiatric: denies: anxiety, bipolar disorder, depression, hopeless, panic disorder, schizophrenia, sleepless, suicidal, others All Other Systems: Reviewed and Negative Physical Exam General Appearance: Moderate Distress HEENT: Normal ENT Inspection, Pharynx Normal, TMs Normal Neck: Full Range of Motion, Non-Tender, Normal, Normal Inspection Respiratory: Accessory Muscle Use, Chest Non-Tender, Decreased Breath Sounds, Rales, Respiratory Distress, Wheezing Cardiovascular: No Edema, No JVD, No Murmur, No Gallop, Normal Peripheral Pulses, Regular Rate/Rhythm Breast Exam: Deferred Gastrointestinal: No Organomegaly, Non Tender, No Pulsatile Mass, Normal Bowel Sounds, Soft Genitalia: Deferred Pelvic: Deferred Rectal: Deferred Extremities: No calf tenderness, Normal capillary refill, Pedal edema Musculoskeletal : Apperance: Normal Neurologic: Alert, subgrade roller operator II-XII nml as Tested, Motor Weakness, Normal Affect, Normal Mood, No Sensory Deficits Cerebellar Function: Normal Reflexes: Normal Skin: Dry, Normal Color, Warm Lymphatic: No Adenopathy EKG EKG : Pulse Rate (adult): 84 [place]: Normal Cardiac Rhythm: NSR Block: None Hypertrophy: None ST: Normal Comments Low voltage Was a procedure done? Was a procedure done?: No Differential Dx Differential Diagnosis: Asthma, Bronchitis, CHF, COPD, Pneumonia X-Ray, Labs, Meds, VS Vital Signs Date Time Temp Pulse Resp B/P (MAP) Pulse Ox O2 Delivery O2 Flow Rate FiO2 06/24/25 17:14 148/78 06/24/25 15:59 84 06/24/25 15:40 22 95 Nasal Cannula* 2 28 06/24/25 15:08 98.6 62 22 102/53 92 98.6 Lab Test 06/24/25 17:08 06/24/25 16:11 Range/Units Troponin I High Sensitivity Pending 7 </=54 ng/L White Blood Count 8.6 4.4-10.8 10^3/uL Red Blood Count 5.67 4.5-5.90 10^6/uL Hemoglobin 15.3 13.5-17.5 g/dL Hematocrit 44.5 41.0-53.0 % Mean Corpuscular Volume 78.4 L 80.0-100.0 fL Mean Corpuscular Hemoglobin 27.0 L 28.0-32.0 pg Mean Corpuscular Hemoglobin Concent 34.4 32.0-36.0 g/dL Red Cell Distribution Width 14.4 H 11.8-14.3 % Platelet Count 190 140-450 10^3/uL Mean Platelet Volume 7.8 6.9-10.8 fL Neutrophils (%) (Auto) 68.2 37.0-80.0 % Lymphocytes (%) (Auto) 21.7 10.0-50.0 % Monocytes (%) (Auto) 7.0 0.0-12.0 % Eosinophils (%) (Auto) 2.2 0.0-7.0 % Basophils (%) (Auto) 0.9 0.0-2.0 % Neutrophils # (Auto) 5.9 1.6-8.6 10 ^3/uL Lymphocytes # (Auto) 1.9 0.4-5.4 10 ^3/uL Monocytes # (Auto) 0.6 0-1.3 10 ^3/uL Eosinophils # (Auto) 0.2 0-0.8 10 ^3/uL Basophils # (Auto) 0.1 0-0.2 10 ^3/uL Nucleated Red Blood Cells 0.2 % Sodium Level 145 136-145 mmol/L Potassium Level 2.6 L 3.5-5.1 mmol/L Chloride Level 103 98-107 mmol/L Carbon Dioxide Level 34 H 20-31 mmol/L Anion Gap 8 5-15 Blood Urea Nitrogen 13 9-23 mg/dL Creatinine 1.06 0.700-1.30 mg/dL Glomerular Filtration Rate Calc 80 >90 mL/min BUN/Creatinine Ratio 12.3 10.0-20.0 Serum Glucose 123 H 74-106 mg/dL Lactic Acid Level 2.5 *H 0.4-2.0 mmol/L Calcium Level 8.5 L 8.7-10.4 mg/dL B-Type Natriuretic Peptide 23.90 0-100 pg/mL Plasma/Serum Blood Alcohol < 3.0 <10 mg/dL Current Medications Medications (Trade) Dose Ordered Sig/Tiffanie Route Start Time Stop Time Status Last Admin Methylprednisolone Sodium Succinate (Solu Medrol) 125 mg ONCE ONCE IV 06/24/25 15:30 06/24/25 15:31 DC 06/24/25 17:15 Furosemide (Lasix Injection) 40 mg ONCE ONCE IV 06/24/25 15:30 06/24/25 15:31 DC 06/24/25 17:14 Ipratropium [place] (Atrovent Medneb) 1 mg ONCE ONCE HHN 06/24/25 15:30 06/24/25 15:31 DC 06/24/25 15:40 Albuterol (Ventolin Medneb) 20 mg ONCE ONCE N 06/24/25 15:30 06/24/25 15:31 DC 06/24/25 15:40 Chest XR indicates: 1. Bibasilar areas of atelectasis or airspace disease which appear new when compared to 11/2024 The patient was given Solu-Medrol 125 mg IV push here in the emergency depart ment's Based on the findings on the chest x-ray, the patient is also given Lasix 40 mg IV push The patient was given a breathing treatment of albuterol and Atrovent The initial lactic acid came back at 2.5. Blood cultures were also drawn. We are considering this to be possible sepsis secondary to the elevated lactic acid as well as the respiratory rate The patient is being given normal saline at sepsis protocol The patient was then started on vancomycin and Rocephin after blood cultures were drawn. We will continue to monitor the patient's respiratory status and monitor for any fluid overload as we hydrate the patient. The patient's chemistry panel shows a potassium of 2.6 The patient is being started on a K rider The patient's CBC is within normal limits The 1st troponin level came back as negative The patient is being admitted at this time. Images Reviewed?: Images reviewed and evaluated by me Time of 1ST Reevaluation: 17:25 Reevaluation 1ST: Unchanged Patient Education/Counseling: Diagnosis, Treatment, Prognosis Family Education/Counseling: Diagnosis, Treatment, Prognosis SEPSIS Sepsis Screen Date sepsis recognized/suspect: Jun 24, 2025 Time Sepsis recognized/suspect: 1508 Recent Procedure: No On Antibiotic Therapy: No Respiratory Rate >20: Yes Heart Rate >90: No Temp<36 C (96.8 F) or >38.3 C: No SBP <90 or MAP <65 mmHG: No New Acute Mental Status Change: No Is the patient on CPAP, BIPAP,: No Physician Orders Urinalysis (06/24/25 15:21) Med Neb Initial Treatment (06/24/25 15:21) Heplock Iv (06/24/25 15:21) Pulse Oximetry (06/24/25 15:21) Switchman (06/24/25 15:21) Blood Pressure (06/24/25 15:21) Chest Two Views Routine (06/24/25 15:21) Electrocardigram (06/24/25 15:21) Blood Culture (06/24/25 15:21) Covid19 Antigen Sammi (06/24/25 ) Rapid Influenza A&B (06/24/25 15:21) Troponin-I Hs (06/24/25 16:21) Troponin-I Hs (06/24/25 18:21) Electrocardigram (06/24/25 16:21) Electrocardigram (06/24/25 18:21) Drug Screen (06/24/25 15:25) Sodium Chloride 0.9% (06/24/25 17:15) Vancomycin 1gm/250ml Kit (06/24/25 17:15) Ceftriaxone 1gm/50ml D5w (Rocephin) (06/24/25 17:15) Vital Signs Date Time Temp Pulse Resp B/P (MAP) Pulse Ox O2 Delivery O2 Flow Rate FiO2 06/24/25 17:14 148/78 06/24/25 15:59 84 06/24/25 15:40 22 95 Nasal Cannula* 2 28 06/24/25 15:08 98.6 62 22 102/53 92 98.6 Laboratory Tests Test 06/24/25 16:11 Lactic Acid Level 2.5 mmol/L (0.4-2.0) *H White Blood Count 8.6 10^3/uL (4.4-10.8) Medications Medications Dose Ordered Sig/Tiffanie Route Start Time Stop Time Status Last Admin Dose Admin Albuterol 20 mg ONCE ONCE N 06/24/25 15:30 06/24/25 15:31 DC 06/24/25 15:40 Furosemide 40 mg ONCE ONCE IV 06/24/25 15:30 06/24/25 15:31 DC 06/24/25 17:14 Ipratropium [place] 1 mg ONCE ONCE [facility] 06/24/25 15:30 06/24/25 15:31 DC 06/24/25 15:40 Methylprednisolone Sodium Succinate 125 mg ONCE ONCE IV 06/24/25 15:30 06/24/25 15:31 DC 06/24/25 17:15 Departure 1 Departure Time of Disposition: 17:24 Impression: Primary Impression: Sepsis Qualified Codes: A41.9 - Sepsis, unspecified organism; R65.20 - Severe sepsis without septic shock Additional Impressions: COPD exacerbation Hypokalemia Disposition: ADMITTED INPATIENT Admit to: Tele Condition: Fair Critical Care Note Critical Care Time?: Yes (45 min-critical care time only) Stability Stability form required: Yes Unstable for transfer: Telemetry monitoring (Telemetry monitoring required), ED Physician Assesment (Clinical assesment) Heart Score Heart Score: Heart Score Response (Comments) Value History N/A 0 EKG N/A 0 Age N/A 0 Risk Factors N/A 0 Troponin N/A 0 Total 0 I personally scribed for ELIZABETH GUIDRY MD ([email or web address]) on 06/24/25 at 15:25. Electronically submitted by Russell Garcia ([email or web address]). I personally scribed for ELIZABETH GUIDRY MD ([email or web address]) on 06/24/25 at 15:59. Electronically submitted by Russell Garcia ([email or web address]). I personally scribed for ELIZABETH GUIDRY MD ([email or web address]) on 06/24/25 at 17:22. Electronically submitted by Russell Garcia ([email or web address]). ELIZABETH GUIDRY MD Jun 24, 2025 15:25
[2025-06-24 15:40] VITALS: RESP 22; O2SAT 95
[2025-06-24] MEDS: IPRATROPIUM BROM 0.5 MG/2.5ML INH SOL HHN ONE (15:40)
[2025-06-24] MEDS: ALBUTEROL SULF 2.5 MG/0.5ML(0.5%) NEB SOLN HHN ONE (15:40)
[2025-06-24 15:59] VITALS: PULSE 84
[2025-06-24 16:31] LABS: Hematocrit 44.5 % (41.0-53.0); Hemoglobin 15.3 g/dL (13.5-17.5); Mean Corpuscular Hemoglobin 27.0 pg (28.0-32.0); Mean Corpuscular Volume 78.4 fL (80.0-100.0); Nucleated Red Blood Cells % 0.2 %
[2025-06-24 16:39] LABS: Chloride 103 mmol/L (98-107)
[2025-06-24 16:40] LABS: Anion Gap 8 (5-15)
[2025-06-24 16:42] LABS: Calcium 8.5 mg/dL (8.7-10.4); Carbon Dioxide 34 mmol/L (20-31); Potassium 2.6 mmol/L (3.5-5.1); Sodium 145 mmol/L (136-145)
[2025-06-24 16:45] LABS: BUN/Creatinine Ratio 12.3 (10.0-20.0); Blood Urea Nitrogen 13 mg/dL (9-23)
[2025-06-24 16:46] LABS: Glucose 123 mg/dL (74-106)
[2025-06-24 16:53] LABS: Lactic Acid w/Reflex 2.5 mmol/L (0.4-2.0)
[2025-06-24] MEDS: FUROSEMIDE 40 MG/4 ML VIAL IV ONE (17:14)
[2025-06-24] MEDS: methylPREDNISolone SOD SUCC 125 MG/2 ML VL IV ONE (17:15)
[2025-06-24] MEDS ORDERED: VANCOMYCIN 1GM/250ML KIT 250 ML IV ONE (17:15)
[2025-06-24] MEDS ORDERED: SODIUM CHLORIDE 0.9% 2,250 ML IV ONE (17:15)
--- NOTE | 2025-06-24 17:17 | DVH ---
XY CHEST TWO VIEWS ROUTINE CLINICAL HISTORY: sob COMPARISON: CT CHEST WITHOUT CONTRAST on DOS: 02/26/25, XY CHEST PORTABLE on DOS: 02/21/25, XR CHEST 1 EW on DOS: 02/19/25 TECHNIQUE: Frontal and lateral view of the chest was obtained FINDINGS: Lines and Tubes: Pacemaker in place with pulse generator over the left chest unchanged from 5. Lungs: Bibasilar areas of airspace disease or atelectasis which appear new when compared to 5 Pleura: No effusion. No pneumothorax. Cardiomediastinal contours: Unremarkable Bones: No acute osseous abnormality. IMPRESSION: 1. Bibasilar areas of atelectasis or airspace disease which appear new when compared to 11/2024
[2025-06-24] MEDS ORDERED: POTASSIUM CHL 20MEQ/100ML 100 ML IV ONE (17:30)
--- NOTE | 2025-06-25 12:16 | ECG ---
[facility] Test Date: 2025-06-24 Test Time: 14:59:45 Pat Name: VINCENZO JULIAN Department: ED Room: Gender: M Travel Professional: SANDRA : 1965 Requested By: ELIZABETH GUIDRY Order Number: [id number] Reading MD: Arsh Meléndez Measurements Intervals [place] Rate: 84 P: 72 [place]: 178 QRS: -9 QRSD: 118 T: 128 QT: 371 QTc: 439 Interpretive Statements Sinus rhythm Ventricular premature complex Sinus pause Nonspecific intraventricular conduction delay Low voltage, precordial leads Abnormal T, consider ischemia, lateral leads Baseline wander in lead(s) I,III,aVR,aVL,V2 Electronically Signed On 06-26-2025 17:01:17 PDT by Arsh Meléndez Please click the below link to view image of tracing.
== END 2025-06-24 18:02 | disposition left against medical advice (07) ==
LOC: ER 14:57
DX: A41.9 Sepsis, unspecified organism (principal); J44.1 Chronic obstructive pulmonary disease with (acute) exacerbation; E87.6 Hypokalemia; F17.210 Nicotine dependence, cigarettes, uncomplicated; I11.0 Hypertensive heart disease with heart failure; I50.9 Heart failure, unspecified; I25.2 Old myocardial infarction; F12.90 Cannabis use, unspecified, uncomplicated; Z98.890 Other specified postprocedural states; Z86.73 Personal history of transient ischemic attack (TIA), and cerebral infarction without residual deficits; Z59.00 Homelessness unspecified
CPT/HCPCS: 36415; 71046; 80048; 80320; 83605; 83880; 84484; 85025; 87040; 93005; 94644; 96374; 96375; 99291; J1938; J2919

== ENCOUNTER 2025-07-23 09:28 | Emergency (ER) | payer MEDICARE, MEDICAID ==
[~2025-07-23] VITALS: Ht 180.3 cm; Wt 103.0 kg
--- NOTE | 2025-07-23 09:38 | ECG ---
[facility] Test Date: 2025-07-23 Test Time: 09:35:08 Pat Name: VINCENZO JULIAN Department: Room: Gender: M Tank Erector: WALTER : 1965 Requested By: YARED AGUILAR Order Number: [id number] Reading MD: Arsh Meléndez Measurements Intervals [place] Rate: 82 P: 63 [place]: 188 QRS: -26 QRSD: 115 T: 101 QT: 430 QTc: 503 Interpretive Statements Sinus rhythm Atrial premature complex Nonspecific intraventricular conduction delay Nonspecific T abnormalities, lateral leads Electronically Signed On 07-24-2025 22:16:28 PDT by Arsh Meléndez Please click the below link to view image of tracing.
[2025-07-23 10:15] LABS: Hematocrit 40.8 % (41.0-53.0); Hemoglobin 14.3 g/dL (13.5-17.5); Mean Corpuscular Hemoglobin 27.1 pg (28.0-32.0); Mean Corpuscular Volume 77.4 fL (80.0-100.0); Nucleated Red Blood Cells % 0.2 %
[2025-07-23 10:26] LABS: Alanine Aminotransferase 18 U/L (7-40); Albumin 4.0 g/dL (3.2-4.8); Alkaline Phosphatase 90 U/L (46-116); Anion Gap 7 (5-15); BUN/Creatinine Ratio 10.9 (10.0-20.0); Bilirubin, Total 0.4 mg/dL (0.2-1.0); Blood Urea Nitrogen 11 mg/dL (9-23); Chloride 103 mmol/L (98-107); Glucose 91 mg/dL (74-106); Sodium 143 mmol/L (136-145); Total Protein 6.5 g/dL (5.7-8.2)
[2025-07-23 10:30] VITALS: BP 131/74; PULSE 80; RESP 14; TEMP 98.3; O2SAT 98
[2025-07-23 10:30] LABS: Calcium 8.7 mg/dL (8.7-10.4); Carbon Dioxide 33 mmol/L (20-31); Potassium 2.9 mmol/L (3.5-5.1)
--- NOTE | 2025-07-23 10:38 | ED.PDOC ---
HPI Comments HPI: This is a 60 year old male presenting to the ED with chief complaint of bradycardia. Patient reports that he was at his [employer] Malcolm's office for an appointment when he was noted to have a heart rate in the 30s. Patient relays that he has been experiencing some increased fatigue recently as well. Patient is currently on home O2 due to COPD and he continues to smoke cigarettes. Patient denies any chest pain, dizziness, fever, chills, or hemoptysis. Initial Vitals BP: 109/61 HR: 82 RR: 24 O2: 97% Temp: 98F Past Medical History: COPD, TIA, MT, HTN Past Surgical History: Hernia Repair Social History: +Smoking, denies ETOH, denies drug use. Medications: Reviewed Allergies: Latex HPI: Poor Historian. REVIEW OF SYSTEMS: CONSTITUTIONAL: Denies acute: fever, diaphoresis, chills, HEAD: Denies acute: headache, photophobia Eyes: Denies acute: Double vision, vision loss, eye pain, eye discharge. EARS: Denies acute: tinnitus, hearing loss, ear discharge, ear pain, THROAT: Denies acute: sore throat, swelling, difficulty swallowing , pain with swallowing, change in voice. NECK: Denies acute: neck pain, neck swelling, stiff neck. HEART: Denies acute : chest pain, palpitations, LUNGS: Denies acute: SOB, wheezing, cough, hemoptysis ABDOMEN: Denies acute: abdominal pain, Nausea, Vomiting, diarrhea, melena , hematemesis, hematochezia SKIN: Denies acute: rash, redness, lesions, itchiness. EXTREMITIES: Denies acute: calf pain, numbness, tingling, weakness, denies pain in extremity. Denies acute: Low back pain. Neuro: Denies acute: focal neurological deficit, motor or sensory focal neurological deficit, tremors, seizure like activity, confusion, dizziness, change in mental status, loss of bowel or bladder function, cauda equina like symptoms. : Denies acute: dysuria, hematuria, flank pain, increase in urinary frequency. PSYCH: Denies acute: hallucination, suicidal ideation, homicidal ideation. PHYSICAL EXAM: General: ----mild----acute distress, awake and alert. Head: normocephalic, atraumatic. Neck: supple, trachea is midline, no swelling. Throat: Normal phonation. Eyes:, no erythema, no purulent discharge, no proptosis, no icterus. Heart: regular rate, regular rhythm, no significant murmur appreciated. Lungs: no apparent respiratory distress, Able to speak in full sentences. No wheezing, no rhonchi, no crackles. No stridors Clear to auscultation bilaterally. On supplemental oxygen Abdomen: non tender to palpation, non distended, soft, no guarding, no rebound, + bowel sounds. Obese Neuro: Awake, Alert, oriented to name, self, situation, follows commands GCS=15. Speech is normal. Skin: no petechia, no purpura, no cyanosis, non-pale, not jaundice. Lower extremities: --1/4 bilateral - Pitting edema no deformity, no focal swelling, no calf TTP. Makes eye contact. moves all four extremities. Face: no apparent facial droop. ED COURSE: DISCLAIMER: This medical document was created using an electronic medical record system with voice recognition software and computerized dictation system. Although this document has been carefully reviewed, there might still be some phonetic and typographical errors. Occasional wrong-word or "sound-alike" substitutions may have occurred due to the inherent limitations of voice recognition software. These areas are purely typographical due to imperfections of the software programs and do not reflect any compromise in the patient's medical care. Please read the chart carefully and recognize, using context, where these substitutions have occurred. Chief Complaint: Chest Pain Time Seen by MD: 10:32 Primary Care Provider: DR RODRIGUEZ Reviewed Notes: Medications, Allergies Allergies: Coded Allergies: Latex (Verified Allergy, Unknown, 07/23/25) Home Meds Active Scripts Prednisone (Prednisone) 20 Mg Tab, 20 MG PO QAM for 5 Days, #5 MG Prov:JULISSA LANDA MD 02/24/25 Reported Medications Metoprolol Succinate (Toprol Xl) 50 Mg Tab, 1 TAB PO DAILY, #30 TAB 5 Refills 04/23/25 Sacubitril-Valsartan (Entresto 24-26 mg) 1 Tab Tab, 1 TAB PO BID, TAB 04/23/25 Budesonide-Formoterol Fumarate (Breyna 160-4.5 Mcg/Act) 1 Aer Aer, 2 PUFF INH BID 02/22/25 Albuterol Sulfate (VENTOLIN MDI) 90 Mcg Ih, 2 PUFF PO Q4HPRN PRN for dyspnea 02/22/25 Furosemide (Furosemide) 20 Mg Tab, 2 TAB PO DAILY 02/22/25 Amlodipine Besylate (Amlodipine Besylate) 10 Mg Tab, 1 TAB PO DAILY 02/22/25 Albuterol Sulfate (Albuterol Sulfate) 0.083 % Neb 02/22/25 Carvedilol (Carvedilol) 6.25 Mg Tab, 12.5 MG PO BID 07/02/23 Apixaban Base (ELIQUIS) 5 Mg Tab, 5 MG PO BID, TAB 07/02/23 Acetaminophen (Acetaminophen) 325 Mg Tab, 650 MG PO Q6HP PRN for MILD PAIN 07/02/23 Ascorbic Acid (VITAMIN C TABLET) 500 Mg Tb, 1 TAB PO BID 07/02/23 Information Source: Patient Mode of Arrival: Wheelchair Was a procedure done? Was a procedure done?: No CP Differential Dx Differential Diagnosis: Atrial Dysrhythmia, AV Block 1st Degree, AV Block 2nd Degree, AV Block 3rd Degree, Digoxin Toxicity, Electrolyte Disorder, Hypoxia, MAT, PAC's, Pacemaker Malfunction, Pulmonary Embolus X-Ray, Labs, Meds, VS Vital Signs Date Time Temp Pulse Resp B/P (MAP) Pulse Ox O2 Delivery O2 Flow Rate FiO2 07/23/25 11:09 73 07/23/25 10:30 80 14 98 Nasal Cannula* 3 32 07/23/25 10:30 98.3 80 14 131/74 (93) 98 98.3 07/23/25 09:35 82 07/23/25 09:35 98.0 82 24 109/61 97 98.0 Lab Test 07/23/25 11:14 07/23/25 09:58 Range/Units Troponin I High Sensitivity 6 7 </=54 ng/L White Blood Count 6.8 4.4-10.8 10^3/uL Red Blood Count 5.28 4.5-5.90 10^6/uL Hemoglobin 14.3 13.5-17.5 g/dL Hematocrit 40.8 L 41.0-53.0 % Mean Corpuscular Volume 77.4 L 80.0-100.0 fL Mean Corpuscular Hemoglobin 27.1 L 28.0-32.0 pg Mean Corpuscular Hemoglobin Concent 35.0 32.0-36.0 g/dL Red Cell Distribution Width 14.1 11.8-14.3 % Platelet Count 185 140-450 10^3/uL Mean Platelet Volume 7.8 6.9-10.8 fL Neutrophils (%) (Auto) 66.8 37.0-80.0 % Lymphocytes (%) (Auto) 20.4 10.0-50.0 % Monocytes (%) (Auto) 9.4 0.0-12.0 % Eosinophils (%) (Auto) 2.7 0.0-7.0 % Basophils (%) (Auto) 0.7 0.0-2.0 % Neutrophils # (Auto) 4.5 1.6-8.6 10 ^3/uL Lymphocytes # (Auto) 1.4 0.4-5.4 10 ^3/uL Monocytes # (Auto) 0.6 0-1.3 10 ^3/uL Eosinophils # (Auto) 0.2 0-0.8 10 ^3/uL Basophils # (Auto) 0 0-0.2 10 ^3/uL Nucleated Red Blood Cells 0.2 % Sodium Level 143 136-145 mmol/L Potassium Level 2.9 L 3.5-5.1 mmol/L Chloride Level 103 98-107 mmol/L Carbon Dioxide Level 33 H 20-31 mmol/L Anion Gap 7 5-15 Blood Urea Nitrogen 11 9-23 mg/dL Creatinine 1.01 0.700-1.30 mg/dL Glomerular Filtration Rate Calc 85 >90 mL/min BUN/Creatinine Ratio 10.9 10.0-20.0 Serum Glucose 91 74-106 mg/dL Calcium Level 8.7 8.7-10.4 mg/dL Total Bilirubin 0.4 0.2-1.0 mg/dL Aspartate Amino Transferase (AST) 18 13-40 U/L Alanine Aminotransferase (ALT) 18 7-40 U/L Alkaline Phosphatase 90 46-116 U/L B-Type Natriuretic Peptide 39.47 0-100 pg/mL Total Protein 6.5 5.7-8.2 g/dL Albumin 4.0 3.2-4.8 g/dL Time of 1ST Reevaluation: 11:32 Reevaluation 1ST: Unchanged Patient Education/Counseling: Diagnosis, Treatment Family Education/Counseling: No Family Present Comments MDM: patient presented with the above HPI.-bradycardia episode/shortness of breath----workup was initiated. patient was found with the above mentioned diagnosis. the following medications were ordered: please refer to order lists of meds and tests obtained by myself Dr. Aguilar. Patient ED course and VS have been stabilized. Patient has been reassessed in the ED and remained in a stable condition. Patient eloped All the reports of any imaging studies that were ordered by myself were reviewed by myself. Departure 1 Departure Time of Disposition: 10:49 Impression: Primary Impression: Bradycardia Additional Impressions: Hypokalemia Generalized weakness Eloped from emergency department CHF exacerbation Pneumonia Disposition: ADMITTED INPATIENT Admit to: Tele Condition: Guarded Additional Instructions: Patient eloped Discharged With: Self Critical Care Note Critical Care Time?: No Heart Score Heart Score: Heart Score Response (Comments) Value History Moderate Suspicious 1 EKG Normal 0 Age 45-64 1 Risk Factors 1 or 2 risk factors 1 Troponin Normal limit 0 Total 3 I personally scribed for YARED AGUILAR DO ([email or web address]) on 07/23/25 at 10:38. Electronically submitted by Russell Garcia ([email or web address]). YARED AGUILAR DO Jul 23, 2025 10:38
[2025-07-23] MEDS ORDERED: POTASSIUM CHL 20 Meq TABLET PO ONE (11:00)
[2025-07-23 11:09] VITALS: PULSE 73
--- NOTE | 2025-07-23 11:10 | ECG ---
[facility] Test Date: 2025-07-23 Test Time: 11:09:00 Pat Name: VINCENZO JULIAN Department: [facility] ED Patient ID: [facility]-[id number] Room: Gender: M Client Services Associate: gp : 1965 Requested By: YARED AGUILAR Order Number: [id number] Reading MD: Arsh Meléndez Measurements Intervals [place] Rate: 73 P: 71 [place]: 190 QRS: -55 QRSD: 126 T: 87 QT: 448 QTc: 494 Interpretive Statements Sinus rhythm Multiple premature complexes, vent & supraven Sinus pause Nonspecific IVCD with LAD Nonspecific T abnormalities, lateral leads Baseline wander in lead(s) I Electronically Signed On 07-24-2025 22:16:58 PDT by Arsh Meléndez Please click the below link to view image of tracing.
--- NOTE | 2025-07-23 12:13 | DVH ---
CHEST RADIOGRAPH Indication: cp Technique: Single frontal view of the chest was obtained Comparison: XR CHEST 1 VIEW on DOS: 06/24/25, XY CHEST PORTABLE on DOS: 02/21/25, XR CHEST 1 VIEW on DOS: 02/19/25 FINDINGS: Lines and Tubes: Maker in place with pulse generator over the left chest. Lungs: Increasing airspace disease bilateral lower lobes or development of atelectasis. Pleura: No effusion. No pneumothorax. Cardiomediastinal contours: Unremarkable Bones: No acute osseous abnormality. IMPRESSION: 1. Increasing airspace disease or atelectasis both bases. 2. Findings are suggest either developing congestive failure or pneumonia. 3. Cardiac size unchanged. HS:Y
[2025-07-23] MEDS ORDERED: FUROSEMIDE 40 MG/4 ML VIAL IV ONE (13:00)
== END 2025-07-23 12:43 | disposition left against medical advice (07) ==
LOC: ER 09:30
DX: R00.1 Bradycardia, unspecified (principal); I11.0 Hypertensive heart disease with heart failure; I50.9 Heart failure, unspecified; J18.9 Pneumonia, unspecified organism; E87.6 Hypokalemia; R53.1 Weakness; F17.210 Nicotine dependence, cigarettes, uncomplicated; J44.0 Chronic obstructive pulmonary disease with (acute) lower respiratory infection; Z79.899 Other long term (current) drug therapy; Z79.52 Long term (current) use of systemic steroids; Z79.01 Long term (current) use of anticoagulants; Z86.73 Personal history of transient ischemic attack (TIA), and cerebral infarction without residual deficits; Z91.040 Latex allergy status; Z98.890 Other specified postprocedural states
CPT/HCPCS: 36415; 71045; 80053; 83880; 84484; 85025; 93005